=== PATIENT | male | born 1940 | race Caucasian/White ===

== ENCOUNTER 2017-02-24 20:22 | Inpatient (IN) | payer OTHER, MEDICARE ==
[~2017-02-24] VITALS: Ht 175.3 cm; Wt 93.6 kg
[2017-02-24 20:30] VITALS: BP 118/58; PULSE 59; RESP 20; TEMP 97.9; O2SAT 98
[2017-02-24 20:42] VITALS: O2SAT 98
[2017-02-24] MEDS ORDERED: TERA2CAP3 PO (20:42)
[2017-02-24] MEDS ORDERED: LISI2.5T3 PO (20:42)
[2017-02-24] MEDS ORDERED: GUAI1TAB3 PO (20:42)
[2017-02-24] MEDS ORDERED: [UNRECOGNIZED DRUG - OTHER] (20:42)
[2017-02-24] MEDS ORDERED: SODIUM CHLOR 0.9% 1000 ML INJ 1,000 ML IV ONE (20:45)
--- NOTE | 2017-02-24 20:54 | PD ---
HPI Chief Complaint: Syncope/Near-Syncope Time Seen by Provider: 20:30 Travel History International Travel<30 days: No Contact w/Intl Traveler<30days: No Traveled to known affect area: No History of Present Illness HPI 76-year-old male was brought by EMS after syncopal episode. Patient was seen by personal physician today and blood pressure found to be elevated. Blood pressure was 180/88 at the ID clinic this morning. Patient was given prescription for Terazosyn 2 mg daily and Guaifenesin for chronic cough. Patient took the first dose of Terazosin and guaifenesin this afternoon at 5 PM. Patient had a syncopal episode about 2 hours after he took the medication. Patient's states the patient turned pale and had lee color on the skin. Patient's eye rolled back and patient became unresponsive. Patient's states that the episode lasted about 2 minutes. Patient regained consciousness subsequently. Patient did not have any stiffening or shaking of the extremity. Patient did not have any bladder or bowel incontinence. EMS was called. Blood pressure was found to be 80/60 at the scene. Patient was given normal saline solution 250 cc IV bolus. Patient was transferred to ED for evaluation. Patient has history of asthma and allergy. Patient has a chronic cough for the past month. Patient has been wheezing for the past month. Patient has an inhaler at home. Patient denies any fever chills. Patient denies any headache. Patient denies any chest pain. Patient denies abdominal pain. Patient denies any focal weakness or numbness of extremity. Patient's hearing impair. Recent states that he had the chest x-ray at [facility] this morning and was normal. Patient states that the cough is in persistent for the past month and nonproductive. Patient denies any shortness of breath. Patient has history of prostate cancer in the past. PFSH Past Medical History Anxiety: Yes Cardiovascular Problems: Yes Hypertension: Yes Tetanus Vaccination: Unknown Past Surgical History Other Surgery: Yes (prostate) Social History Alcohol Use: No Tobacco Use: No Substance Use: No Allergies-Medications (Allergen,Severity, Reaction): Coded Allergies: Aspirin (Verified Allergy, Severe, Swelling, 02/24/17) at pulses Reported Meds & Prescriptions Reported Meds & Active Scripts Active Reported [resp meds ] Lisinopril 2.5 Mg Tab 2.5 Mg PO DAILY Guaifenesin ER 12 HR (Guaifenesin) 600 Mg Tomás 400 Mg PO BID Terazosin (Terazosin HCl) 2 Mg Cap 2 Mg PO HS Review of Systems General / Constitutional: No: Fever Eyes: No: Visual changes HENT: No: Headaches Cardiovascular: No: Chest Pain or Discomfort Respiratory: Positive: Cough, Wheezing, No: Shortness of Breath Gastrointestinal: No: Abdominal Pain Genitourinary: No: Dysuria Musculoskeletal: No: Pain Skin: No Rash Neurologic: Positive: Syncope, No: Weakness Psychiatric: No: Depression Endocrine: No: Polydipsia Hematologic/Lymphatic: No: Easy Bruising Physical Exam Narrative GENERAL: Well-nourished, well-developed patient. SKIN: Focused skin assessment warm/dry. HEAD: Normocephalic. EYES: No scleral icterus. No injection or drainage. Pupils 2 mm equal reactive. NECK: Supple, trachea midline. No JVD or lymphadenopathy. CARDIOVASCULAR: Regular rate and rhythm without murmurs, gallops, or rubs. RESPIRATORY: Breath sounds equal bilaterally. No accessory muscle use. Patient has mild to moderate expiratory wheezes bilaterally. Few rhonchi at the bases. GASTROINTESTINAL: Abdomen soft, non-tender, nondistended. MUSCULOSKELETAL: No cyanosis, or edema. BACK: Nontender without obvious deformity. No CVA tenderness. Neurologic exam: Patient's awake and alert oriented 3. No obvious focal neurological deficit. Data Data Last Documented VS Vital Signs Date Time Temp Pulse Resp B/P Pulse Ox O2 Delivery O2 Flow Rate FiO2 02/24/17 20:42 98 Nasal Cannula 2 02/24/17 20:30 97.9 59 20 118/58 Orders Electrocardiogram (02/24/17 20:40) Complete Blood Count With Diff (02/24/17 20:40) Comprehensive Metabolic Panel (02/24/17 20:40) Creatine Kinase (Cpk) (02/24/17 20:40) Troponin I (02/24/17 20:40) B-Type Natriuretic Peptide (02/24/17 20:40) Prothrombin Time / Inr (Pt) (02/24/17 20:40) Act Partial Throm Time (Ptt) (02/24/17 20:40) Blood Culture (02/24/17 20:40) Urinalysis - C+S If Indicated (02/24/17 20:40) Magnesium (Mg) (02/24/17 20:40) Thyroid Stimulating Hormone (02/24/17 20:40) Phosphorus (Po4) (02/24/17 20:40) Chest, Single Ap (02/24/17 20:40) Ct Brain W/O Iv Contrast(Rout) (02/24/17 20:40) Iv Access Insert/Monitor (02/24/17 20:40) Ecg Monitoring (02/24/17 20:40) Oximetry (02/24/17 20:40) Sodium Chlor 0.9% 1000 Ml Inj (Ns 1000 M (02/24/17 20:45) Lactic Acid (02/24/17 20:49) Methylprednisolone So Succ Inj (Solumedr (02/24/17 21:00) Albuterol-Ipratropium Neb (Duoneb Neb) (02/24/17 21:00) Admit Order (Ed Use Only) (02/24/17 22:34) Labs Laboratory Tests Test 02/24/17 02/24/17 20:45 21:00 White Blood Count 10.6 TH/MM3 Red Blood Count 3.98 MIL/MM3 Hemoglobin 12.2 GM/DL Hematocrit 34.0 % Mean Corpuscular Volume 85.4 FL Mean Corpuscular Hemoglobin 30.6 PG Mean Corpuscular Hemoglobin 35.8 % Concent Red Cell Distribution Width 12.8 % Platelet Count 337 TH/MM3 Mean Platelet Volume 7.2 FL Neutrophils (%) (Auto) 67.2 % Lymphocytes (%) (Auto) 20.2 % Monocytes (%) (Auto) 6.8 % Eosinophils (%) (Auto) 5.0 % Basophils (%) (Auto) 0.8 % Neutrophils # (Auto) 7.1 TH/MM3 Lymphocytes # (Auto) 2.1 TH/MM3 Monocytes # (Auto) 0.7 TH/MM3 Eosinophils # (Auto) 0.5 TH/MM3 Basophils # (Auto) 0.1 TH/MM3 CBC Comment DIFF FINAL Differential Comment B-Type Natriuretic Peptide 5 PG/ML Prothrombin Time 10.7 SEC Prothromb Time International 1.0 RATIO Ratio Activated Partial 26.2 SEC Thromboplast Time Sodium Level 128 MEQ/L Potassium Level 3.6 MEQ/L Chloride Level 89 MEQ/L Carbon Dioxide Level 24.9 MEQ/L Anion Gap 14 MEQ/L Blood Urea Nitrogen 12 MG/DL Creatinine 1.06 MG/DL Estimat Glomerular Filtration 68 ML/MIN Rate Random Glucose 126 MG/DL Lactic Acid Level 2.0 mmol/L Calcium Level 8.8 MG/DL Phosphorus Level 4.6 MG/DL Magnesium Level 1.8 MG/DL Total Bilirubin 0.3 MG/DL Aspartate Amino Transf 19 U/L (AST/SGOT) Alanine Aminotransferase 28 U/L (ALT/SGPT) Alkaline Phosphatase 63 U/L Total Creatine Kinase 93 U/L Troponin I LESS THAN 0.02 NG/ML Total Protein 7.1 GM/DL Albumin 3.9 GM/DL Thyroid Stimulating Hormone 2.390 uIU/ML 3rd Gen [facility] Medical Decision Making Medical Screen Exam Complete: Yes Emergency Medical Condition: Yes Interpretation(s) 2053 PM. EKG shows sinus bradycardia rate of 57. Nonspecific ST-T wave change. 21:58 PM. Last Impressions Chest X-Ray 02/24/172039 Signed Impressions: Service Date/Time: February 20:40 - CONCLUSION: Mild left lung base atelectasis and/or infiltrate is seen. Mary Ma MD 21:58 PM. CBC within normal limit. Sodium 128. Lactic acid 2.0. Cardiac enzymes are normal. 22:[address] scan of brain shows chronic changes. Differential Diagnosis Differential diagnosis including vasovagal reaction, hypotension secondary to medication, acute exacerbation of asthma, bronchitis, pneumonia, UTI, sepsis, TIA, CVA, MA. Narrative Course 76-year-old male with hypotension, syncope, chronic cough. History of asthma. Patient just started on new medication for blood pressure. Normal saline solution 1 L IV bolus. Albuterol with Atrovent unit dose treatment 2. Solu- Medrol 125 mg IV. Diagnosis Primary Impression: Syncope Qualified Code: R55 - Syncope, unspecified syncope type Additional Impressions: Hypotension Qualified Code: I95.2 - Hypotension due to drugs Asthma exacerbation Admitting Information Admitting Physician Requests: Observation Harley Vang MD Feb 24, 2017 20:54
[2017-02-24] MEDS ORDERED: methylPREDNISolone SOD SUCC 125 MG/2 ML VIAL IVP ONE (21:00)
[2017-02-24] MEDS: RESP: ALBUTEROL 2.5 MG/IPRATROPIUM 0.5 MG NEB (SCH) INH (21:25)
--- NOTE | 2017-02-24 21:25 | RADRPT ---
EXAM DATE/TIME: 02/24/2017 20:40 [facility] COMPARISON: No previous studies available for comparison. INDICATIONS : Syncope. MEDICAL HISTORY : None. SURGICAL HISTORY : None. ENCOUNTER: Initial ACUITY: 1 day PAIN SCORE: 0/10 LOCATION: Bilateral chest FINDINGS: Mild left lung base atelectasis and/or infiltrate is seen. There is mild haziness to the right lung b ase as well. Heart and mediastinum are unremarkable for technique. CONCLUSION: Mild left lung base atelectasis and/or infiltrate is seen. Mary Ma MD on February 24, 2017 at 21:23 Board Certified Radiologist. This report was verified electronically.
[2017-02-24 21:31] LABS: AUTOMATED NEUTROPHIL # 7.1 TH/MM3 (1.8-7.7); BASOPHIL # 0.1 TH/MM3 (0-0.2); BASOPHIL % 0.8 % (0.0-2.0); EOSINOPHIL # 0.5 TH/MM3 (0-0.4); HEMO FLAGS DIFF FINAL; LYMPH % 20.2 % (9.0-44.0); LYMPHOCYTE # 2.1 TH/MM3 (1.0-4.8); MEAN CELL VOLUME 85.4 FL (80.0-100.0); MEAN CORPUSCULAR HEMOGLOBIN 30.6 PG (27.0-34.0); MEAN CORPUSCULAR HGB CONC 35.8 % (32.0-36.0); MONO % 6.8 % (0.0-8.0); NEUT % 67.2 % (16.0-70.0); PLATELET COUNT 337 TH/MM3 (150-450); RED BLOOD COUNT 3.98 MIL/MM3 (4.50-5.90); RED CELL DISTRIBUTION WIDTH 12.8 % (11.6-17.2); WHITE BLOOD COUNT 10.6 TH/MM3 (4.0-11.0)
[2017-02-24 21:38] LABS: APTT (PATIENT) 26.2 SEC (24.3-30.1); PROTHROMBIN TIME - PATIENT 10.7 SEC (9.8-11.6)
[2017-02-24 21:40] LABS: ANION GAP 14 MEQ/L (5-15); AST (GOT) 19 U/L (15-37); BICARBONATE 24.9 MEQ/L (21.0-32.0); BLOOD UREA NITROGEN 12 MG/DL (7-18); CHLORIDE 89 MEQ/L (98-107); GLOMERULAR FILTRATION RATE 68 ML/MIN (>89); MAGNESIUM 1.8 MG/DL (1.5-2.5); POTASSIUM 3.6 MEQ/L (3.5-5.1); SODIUM (NA) 128 MEQ/L (136-145)
[2017-02-24 21:50] LABS: ALKALINE PHOSPHATASE 63 U/L (45-117); ALT (GPT) 28 U/L (12-78); TOTAL BILIRUBIN ADULT 0.3 MG/DL (0.2-1.0)
[2017-02-24 21:52] LABS: CREATINE KINASE 93 U/L (39-308)
--- NOTE | 2017-02-24 22:07 | RADRPT ---
EXAM DATE/TIME: 02/24/2017 21:42 [facility] COMPARISON: No previous studies available for comparison. INDICATIONS : Syncopal episode RADIATION DOSE: 48.84 CTDIvol (mGy) MEDICAL HISTORY : Cardiovascular disease. Hypertension. SURGICAL HISTORY : None. ENCOUNTER: Initial ACUITY: 1 day PAIN SCALE: 3/10 LOCATION: Bilateral cranial TECHNIQUE: Multiple contiguous axial images were obtained of the head. Using automated exposure control and adj ustment of the mA and/or kV according to patient size, radiation dose was kept as low as reasonably a chievable to obtain optimal diagnostic quality images. FINDINGS: There is no evidence for intracranial hemorrhage, mass effect, mass lesions, or edema. The visualize d bony structures appear intact. Slight degree of brain atrophy is seen. Slight periventricular whit e matter changes are seen nonspecific mostly consistent with chronic small vessel ischemic changes. There are no signs of acute infarction for technique. CONCLUSION: Slight atrophic and small vessel ischemic changes without any evidence for acute hemorrhage or mass effect. Mary Ma MD on February 24, 2017 at 22:04 Board Certified Radiologist. This report was verified electronically.
[2017-02-24] MEDS ORDERED: SODIUM CHLOR 0.9% 1000 ML INJ 1,000 ML IV SCH (22:45)
[2017-02-24] MEDS: SODIUM CHLOR 0.9% 1000 ML INJ 1,000 ML IV SCH (23:05)
--- NOTE | 2017-02-24 23:08 | HHI.HP ---
HPI Service [facility] Primary Care Physician [facility] Admission Diagnosis syncope. Hypotension. Diagnoses: (1) Syncope Diagnosis: Principal (2) PNA (pneumonia) Diagnosis: Principal (3) Hypotension Diagnosis: Principal (4) Dehydration Diagnosis: Principal (5) Hyponatremia Diagnosis: Principal Travel History International Travel<30 Days: No Contact w/Intl Traveler <30 Da: No Traveled to Known Affected Are: No History of Present Illness This is a 76-year-old male with PMH of HTN, CAD and Anxiety who was brought to the ER by EMS after syncopal episode. Patient was seen by PCP at the [facility] earlier today and noted to have elevated BP of 180/88, started on Terazosin 2mg po qd and given Guaifenesin for c/o cough. States he took meds this afternoon and noted dizziness shortly afterwards. noted pt to be weak/pale and then had sudden syncopal event. No seizure activity noted, no head trauma. BP per EMS 80/60, s/p IVF w/ improvement. On arrival, BP 118/58, HR 59, O2 sat 98% on RA, Afebrile. CBC essentially unremarkable. Na 128. GFR 68, no previous labs for comparison. Lactic Acid 2.0. CXR w/ mild LLL infiltrates. Review of Systems Except as stated in HPI: all other systems reviewed are Neg ROS: 14 point review of systems otherwise negative. Past Family Social History Past Medical History PMH: HTN, CAD and Anxiety Past Surgical History PAST SURGICAL HISTORY: Prostate Surgery Allergies: Coded Allergies: Aspirin (Verified Allergy, Severe, Swelling, 02/24/17) at pulses Family History PAST FAMILY HISTORY: Reviewed. No h/o DM or CAD Social History PAST SOCIAL HISTORY: Negative for alcohol, tobacco or drugs. Physical Exam Vital Signs Vital Signs Date Time Temp Pulse Resp B/P Pulse Ox O2 Delivery O2 Flow Rate FiO2 02/24/17 20:42 98 Nasal Cannula 2 02/24/17 20:30 97.9 59 20 118/58 98 Physical Exam PE: GENERAL: Very pleasant elderly white male in no acute distress. HEENT: PERRLA, EOMI. No scleral icterus or conjunctival pallor. No lid lag or facial droop. CARDIOVASCULAR: Regular rate and rhythm. No obvious murmurs to auscultation. No chest tenderness to palpation. RESPIRATORY: No obvious rhonchi, +expiratory wheezing, otherwise clear to auscultation. Breath sounds equal bilaterally. GASTROINTESTINAL: Abdomen soft, non-tender, nondistended. BS normal. MUSCULOSKELETAL: Extremities without clubbing, cyanosis, or edema. No obvious deformities. NEUROLOGICAL: Awake, alert and oriented x4. No focal neurologic deficits. Moving both upper and lower extremities spontaneously. Laboratory Laboratory Tests Test 02/24/17 02/24/17 20:45 21:00 White Blood Count 10.6 Red Blood Count 3.98 Hemoglobin 12.2 Hematocrit 34.0 Mean Corpuscular Volume 85.4 Mean Corpuscular Hemoglobin 30.6 Mean Corpuscular Hemoglobin 35.8 Concent Red Cell Distribution Width 12.8 Platelet Count 337 Mean Platelet Volume 7.2 Neutrophils (%) (Auto) 67.2 Lymphocytes (%) (Auto) 20.2 Monocytes (%) (Auto) 6.8 Eosinophils (%) (Auto) 5.0 Basophils (%) (Auto) 0.8 Neutrophils # (Auto) 7.1 Lymphocytes # (Auto) 2.1 Monocytes # (Auto) 0.7 Eosinophils # (Auto) 0.5 Basophils # (Auto) 0.1 CBC Comment DIFF FINAL Differential Comment B-Type Natriuretic Peptide 5 Prothrombin Time 10.7 Prothromb Time International 1.0 Ratio Activated Partial 26.2 Thromboplast Time Sodium Level 128 Potassium Level 3.6 Chloride Level 89 Carbon Dioxide Level 24.9 Anion Gap 14 Blood Urea Nitrogen 12 Creatinine 1.06 Estimat Glomerular Filtration 68 Rate Random Glucose 126 Lactic Acid Level 2.0 Calcium Level 8.8 Phosphorus Level 4.6 Magnesium Level 1.8 Total Bilirubin 0.3 Aspartate Amino Transf 19 (AST/SGOT) Alanine Aminotransferase 28 (ALT/SGPT) Alkaline Phosphatase 63 Total Creatine Kinase 93 Troponin I LESS THAN 0.02 Total Protein 7.1 Albumin 3.9 Thyroid Stimulating Hormone 2.390 3rd Gen Date/Time Procedure Status Source Growth 02/24/17 20:45 Aerobic Blood Culture Received Blood Peripheral Pending 02/24/17 20:45 Anaerobic Blood Culture Received Blood Peripheral Pending Result Diagram: 4/20/17 2045 4/20/17 2100 Assessment and Plan Problem List: (1) Syncope ICD Code: R55 Status: Acute (2) Hypotension ICD Code: I95.9 Status: Acute (3) Dehydration ICD Code: E86.0 Status: Acute (4) Hyponatremia ICD Code: E87.1 Status: Acute (5) PNA (pneumonia) ICD Code: J18.9 Status: Acute Assessment and Plan A/P: 1. Syncope: likely secondary to medication and dehydration. Started on Terazosyn 2mg po qd, first dose today, BP per EMS 80/60, s/p IVF w/ improvement. CT Head w/ no acute findings, images reviewed by me. Admit for Observation, telemetry, check Echo, initial trop negative, check serial cardiac enzymes to eval for underlying ischemia. 2. Hypotension: As above, secondary to medication and dehydration. Hold BP meds, monitor BP, resume medications once BP stable. IVF for hydration. 3. Hyponatremia: Na 128, U/a negative for UTI, IVF for hydration, repeat labs in am. 4. Dehydration: GFR 68, no previous labs for comparison, IVF for hydration, repeat labs in am. 5. PNA: CXR w/ LLL infiltrate, images reviewed by me, start IV Rocephin/Zithro , +wheezing in ER, DuoNeb prn, continue Guaifenesin. 6. DVT Prophylaxis: SCD/Teds. 7. Social work for d/c planning as needed. 8. Case discussed w/ ER physician at length. Problem Qualifiers (1) Syncope: Qualified Code: R55 - Syncope, unspecified syncope type (2) Hypotension: Qualified Code: I95.2 - Hypotension due to drugs Arline Borja MD Feb 24, 2017 23:08
[2017-02-24 23:09] LABS: MEAN CORPUSCULAR HGB CONC 36.9 % (32.0-36.0)
[2017-02-24] MEDS ORDERED: ACETAMINOPHEN/HYDROcodone 325 MG/5 MG TAB PO PRN (23:15)
[2017-02-24] MEDS ORDERED: SODIUM CHLORIDE 0.9% FLUSH 10 ML FLUSH IV FLUSH PRN (23:15)
[2017-02-24] MEDS ORDERED: BISACODYL 10 MG SUPP RECTAL PRN (23:15)
[2017-02-24] MEDS ORDERED: ACETAMINOPHEN 325 MG TAB PO PRN (23:15)
[2017-02-24] MEDS ORDERED: ONDANSETRON HCL 4 MG/2 ML VIAL IVP PRN (23:15)
[2017-02-24] MEDS ORDERED: ACETAMINOPHEN/HYDROcodone 325 MG/7.5 MG TAB PO PRN (23:15)
[2017-02-24] MEDS: cefTRIAXone INJ 1,000 MG in SODIUM CHLORIDE 0.9% INJ 100 ML IV SCH (23:35)
[2017-02-25] VITALS (11 sets, daily range): BP systolic 122–206; BP diastolic 66–97; PULSE 62–105; RESP 18–21; TEMP 98–98.4; O2SAT 94–96
[2017-02-25] MEDS: AZITHROMYCIN INJ 500 MG in SODIUM CHLOR 0.9% 250 ML INJ 250 ML IV SCH (00:25)
[2017-02-25] MEDS: RESP: ALBUTEROL 2.5 MG/IPRATROPIUM 0.5 MG NEB (PRN) NEB ×2 (04:11→11:28)
[2017-02-25 04:34] LABS: AUTOMATED NEUTROPHIL # 12.7 TH/MM3 (1.8-7.7); BASOPHIL % 0.2 % (0.0-2.0); EOSINOPHIL % 0.1 % (0.0-4.0); HEMATOCRIT 32.2 % (39.0-51.0); LYMPH % 4.1 % (9.0-44.0); LYMPHOCYTE # 0.5 TH/MM3 (1.0-4.8); MEAN CELL VOLUME 85.3 FL (80.0-100.0); MEAN CORPUSCULAR HEMOGLOBIN 31.5 PG (27.0-34.0); MONO % 0.6 % (0.0-8.0); PLATELET COUNT 323 TH/MM3 (150-450); RED BLOOD COUNT 3.77 MIL/MM3 (4.50-5.90); RED CELL DISTRIBUTION WIDTH 12.9 % (11.6-17.2); WHITE BLOOD COUNT 13.3 TH/MM3 (4.0-11.0)
[2017-02-25 04:36] LABS: HEMO FLAGS AUTO DIFF
[2017-02-25 04:54] LABS: BLOOD, URINE NEG (NEG); COMMENT (UR) CULT NOT INDICATED; CULTURE IF INDICATED CULT NOT INDICATED; GLUCOSE,URINE TRACE mg/dL (NEG); KETONE, URINE NEG (NEG); MUCUS URINE FEW /lpf (OCC); NITRITE,URINE NEG (NEG); SQUAMOUS EPITHELIAL CELL URINE <1 /hpf (0-5); URINE COLOR YELLOW (YELLW/STRAW)
[2017-02-25 05:02] LABS: ALT (GPT) 26 U/L (12-78); ANION GAP 12 MEQ/L (5-15); AST (GOT) 17 U/L (15-37); BICARBONATE 21.1 MEQ/L (21.0-32.0); BLOOD UREA NITROGEN 12 MG/DL (7-18); CHLORIDE 95 MEQ/L (98-107); GLOMERULAR FILTRATION RATE 68 ML/MIN (>89); POTASSIUM 4.3 MEQ/L (3.5-5.1); SODIUM (NA) 128 MEQ/L (136-145)
[2017-02-25 05:06] LABS: ALKALINE PHOSPHATASE 62 U/L (45-117); TOTAL BILIRUBIN ADULT 0.2 MG/DL (0.2-1.0)
[2017-02-25 05:09] LABS: SCAN/DIFF AUTO DIFF CONFIRMED
[2017-02-25] MEDS: guaiFENesin E.R. 600 MG TAB PO SCH ×2 (08:16→20:34)
[2017-02-25] MEDS: SODIUM CHLORIDE 0.9% FLUSH 10 ML FLUSH IV FLUSH SCH ×2 (08:17→20:32)
[2017-02-25] MEDS ORDERED: LISINOPRIL 5 MG TAB PO SCH (09:00)
--- NOTE | 2017-02-25 13:30 | EC ---
Study Study Date:02/25/2017 STUDY CONCLUSIONS SUMMARY LEFT VENTRICLE: The cavity size was normal. Systolic function was normal. The estimated ejection fraction was in the range of 60% to 65%. Although no diagnostic regional wall motion abnormality was identified, this possibility cannot be completely excluded on the basis of this study. The study is not technically sufficient to allow evaluation of LV diastolic function. If LV function is below 40, please consider prescribing an ACEI or ARB or document rationale for non-use. PROCEDURE DATA STUDY STATUS: Elective. Procedure: Transthoracic echocardiography. Image quality was good. Scanning was performed from the parasternal, apical, and subcostal acoustic windows. Study completion: The patient tolerated the procedure well. Transthoracic echocardiography. M-mode, complete 2D, complete spectral Doppler, and color Doppler. Height: Height: 69in. Weight: Weight: 197.6lb. Body mass index: BMI: 29.2kg/m^2. Body surface area: BSA: 2.06m^2. Patient status: Inpatient. CARDIAC ANATOMY LEFT VENTRICLE: The cavity size was normal. Systolic function was normal. The estimated ejection fraction was in the range of 60% to 65%. Although no diagnostic regional wall motion abnormality was identified, this possibility cannot be completely excluded on the basis of this study. The study is not technically sufficient to allow evaluation of LV diastolic function. AORTIC VALVE: The valve appears to be grossly normal. Doppler: There was no stenosis. No significant regurgitation. Valve area: 2.4cm^2 (Vmax). Indexed valve area: 1.17cm^2/m^2 (Vmax). Peak gradient: 19mm Hg (S). MITRAL VALVE: The valve appears to be grossly normal. Doppler: There was no evidence for stenosis. Trace to mild regurgitation. LEFT ATRIUM: The atrium was normal in size. PULMONIC VALVE: Not well visualized. TRICUSPID VALVE: The valve appears to be grossly normal. Doppler: There was no evidence for stenosis. Trace regurgitation. PERICARDIUM: There was no pericardial effusion. Patient weight: 197.6lb _Ejection fraction:_ 65-75% _Fractional shortening:_ 32% up to 5Kg 5-11.5Kg 11.6-22.9Kg 23-45Kg 45-57Kg Aortic Root 7-13 <17 13-22 17-27 17-27 LA diam 6-13 <23 24-38 33-47 37-40 RVID 10-17 7-15 7-15 7-18 8-17 LVIDd 12-22 <32 24-38 33-47 37-40 LVPW 2-4 3-6 5-7 6-8 7-8 IVS 2-4 3-6 5-7 6-8 7-8 BASIC MEASUREMENTS ADULT NORMAL Left ventricle LV internal dimension, ED, chordal *55.7 mm 43-52 level, PLAX LV internal dimension, ES, chordal *38.1 mm 23-38 level, PLAX Fractional shortening, chordal level, 32 % >29 PLAX LV posterior wall thickness, ED 9.62 mm IVS/LVPW ratio, ED 1 <1.3 Ventricular septum Septal thickness, ED 9.64 mm Aortic valve Leaflet separation 23 mm 15-26 BASIC MEASUREMENTS ADULT NORMAL Aortic valve Leaflet separation 23 mm 15-26 Aorta Root diameter, ED 33 mm 20-37 Left atrium Anterior-posterior dimension, ES 32 mm 19-40 Anterior-posterior dimension index, ES 1.55 cm/m^2 <2.2 LA/aortic root ratio 0.97 DOPPLER MEASUREMENTS ADULT NORMAL Main pulmonary artery Pressure, S 24 mm Hg =30 Aortic valve Peak velocity, S 220 cm/s Peak gradient, S 19 mm Hg Valve area, Vmax 2.4 cm^2 Valve area index, Vmax 1.17 cm^2/m^2 Mitral valve Maximal regurgitant velocity 324 cm/s Tricuspid valve Regurgitant peak velocity 236 cm/s Peak RV-RA gradient, S 22 mm Hg Maximal regurgitant velocity 236 cm/s Systemic veins Estimated CVP 10 mm Hg Right ventricle RV pressure, S *32 mm Hg <30 Pulmonic valve Peak velocity, S 141 cm/s LEGEND: Mean values are shown as u=mean value. Asterisk (*) woods values outside specified normal range. Prepared and signed by David Tate [id number]
[2017-02-25] MEDS ORDERED: LISINOPRIL 10 MG TAB PO ONE (14:30)
--- NOTE | 2017-02-25 14:49 | HHI.PR ---
Subjective Remarks Follow-up for syncope and pneumonia. Patient seen with at bedside. The patient states that he was having chest congestion and dry coughing for one month. He states he had a chest x-ray at the [facility] this week that was clear. He states he was diagnosed with bronchitis. He states that yesterday he was sitting down after eating dinner, and had an episode of dizziness with subsequent syncope. He states that his blood pressure has been running high lately, normally on 3 BP meds, so the [facility] put him on a new medication, terazosin twice a day to take for prostate and blood pressure. He states about 2 hours after he took the terazosin for the first time he had the syncopal episode. He continues to complain of dry cough and chest congestion today. He does have a remote history of tobacco use. He states he had PFTs done recently at the [facility], unclear on the results. Objective Vitals Vital Signs Date Time Temp Pulse Resp B/P Pulse Ox O2 Delivery O2 Flow Rate FiO2 02/25/17 11:36 101 18 172/80 95 02/25/17 10:25 170/80 02/25/17 07:44 98.0 90 18 190/86 95 180/97 206/97 02/25/17 04:44 98.3 62 20 122/66 96 02/25/17 01:07 70 02/25/17 00:39 98.4 65 20 132/69 96 02/24/17 20:42 98 Nasal Cannula 2 02/24/17 20:30 97.9 59 20 118/58 98 I/O 02/24/17 02/24/17 02/24/17 02/25/17 02/25/17 02/25/17 07:00 15:00 23:00 07:00 15:00 23:00 Intake Total 600 ml Output Total 800 ml Balance -200 ml Intake IV Total 600 ml Output Urine Total 800 ml # Voids 0 # Bowel Movements 0 Result Diagram: 02/25/1740902/25/17409 Imaging Last Impressions Head CT 02/24/172039 Signed Impressions: Service Date/Time: February 21:42 - CONCLUSION: Slight atrophic and small vessel ischemic changes without any evidence for acute hemorrhage or mass effect. Mary Ma MD Chest X-Ray 02/24/172039 Signed Impressions: Service Date/Time: February 20:40 - CONCLUSION: Mild left lung base atelectasis and/or infiltrate is seen. Mary Ma MD Objective Remarks GENERAL: Well-developed well-nourished obese. In no acute distress. SKIN: Warm and dry. No lesions noted. HEENT: Normocephalic. Pupils equal and round. Mucous membranes pink and moist. CARDIOVASCULAR: Regular rate and rhythm. No murmur appreciated. RESPIRATORY: No accessory muscle use. Clear to auscultation. Expiratory wheezing present in all lung clark. GASTROINTESTINAL: Abdomen soft, non-tender, nondistended. Bowel sounds x4. MUSCULOSKELETAL: No obvious deformities. No clubbing or cyanosis. No edema. NEUROLOGICAL: Awake and alert. No focal neurological deficits. Moves upper and lower extremities spontaneously. Normal speech. PSYCHIATRIC: Appropriate mood and affect; insight and judgment normal. A/P Problem List: (1) Syncope ICD Code: R55 Status: Acute (2) Hypotension ICD Code: I95.9 Status: Acute (3) Dehydration ICD Code: E86.0 Status: Acute (4) Hyponatremia ICD Code: E87.1 Status: Acute (5) PNA (pneumonia) ICD Code: J18.9 Status: Acute Assessment and Plan 76-year-old male with PMH of HTN, CAD and Anxiety who presented after syncopal episode Syncope: Likely due to hypotension from new medication terazosin as well as acute infection as below. Started on Terazosyn 2mg po qd, first dose 2 hours prior to syncopal episode. BP per EMS 80/60, s/p IVF w/ improvement. CT Head w / no acute findings. Orthostatics negative. Troponin normal 3. Echocardiogram with normal systolic function EF 60%. Monitor on telemetry. Acute episode of hypotension with chronic uncontrolled hypertension: Reconcile patient's home medications. Resume lisinopril 40 mg daily and diltiazem 240 mg daily. Hold home HCTZ with possible dehydration. Avoid alpha blockers due to syncope. Resume previous home medications. Clonidine as needed. Monitor and adjust medications as needed. Cold systolic blood pressure around 150. Hyponatremia/dehydration: Na 128. IVF for hydration, repeat labs in am. PNA: CXR personally reviewed w/ LLL infiltrate. Patient reports rest for symptoms 1 month. Continue IV Rocephin/Zithro. Check sputum culture and urinary antigens. Guaifenesin for cough. Acute COPD exacerbation: Right history tobacco abuse. Wheezing on exam. Likely exacerbated by pneumonia as above. Oral steroids 3 days. Scheduled and as needed nebs. O2 as needed. DVT Prophylaxis: SCD/Teds. Discharge Planning Follow-up BP and monitor for clinical improvement from pneumonia. Problem Qualifiers (1) Syncope: Qualified Code: R55 - Syncope, unspecified syncope type (2) Hypotension: Qualified Code: I95.2 - Hypotension due to drugs Phi Marquez Feb 25, 2017 14:49
[2017-02-25] MEDS ORDERED: DILT-64 PO (14:53)
[2017-02-25] MEDS ORDERED: LISI40TA PO (14:55)
[2017-02-25] MEDS ORDERED: ALBU6.7H INH (14:57)
[2017-02-25] MEDS ORDERED: LORA10TA PO (14:58)
[2017-02-25] MEDS ORDERED: RANI150C PO (15:00)
[2017-02-25] MEDS: RESP: ALBUTEROL 2.5 MG/IPRATROPIUM 0.5 MG NEB (SCH) NEB ×2 (15:22→20:24)
[2017-02-25] MEDS: DILTIAZEM-CD 240 MG CAP ER PO SCH (15:55)
[2017-02-25] MEDS: predniSONE 20 MG TAB PO SCH ×2 (15:55→20:34)
[2017-02-25] MEDS: SODIUM CHLOR 0.9% 1000 ML INJ 1,000 ML IV SCH ×2 (15:56→20:34)
[2017-02-25] MEDS ORDERED: HYDR25TA5 PO (16:13)
[2017-02-25] MEDS ORDERED: PRAV40TA2 PO (16:14)
--- NOTE | 2017-02-25 18:43 | EKG ---
Date Performed: 02/24/2017 Time Performed: 20:40:59 PTAGE: 76 years EKG: SINUS BRADYCARDIA BORDERLINE ECG NO PREVIOUS TRACING DOCTOR: Isra Iniguez Interpretating Date/Time 02/25/2017 18:40:15
[2017-02-25] MEDS: LISINOPRIL 20 MG TAB PO SCH (20:34)
[2017-02-25] MEDS: FAMOTIDINE 20 MG TAB PO SCH (20:34)
[2017-02-25] MEDS ORDERED: PILL SPLITTER OTHER PRN (21:00)
[2017-02-26] VITALS (22 sets, daily range): BP systolic 140–178; BP diastolic 66–86; PULSE 65–120; RESP 18–32; TEMP 96.4–98.7; O2SAT 93–98
[2017-02-26] MEDS: AZITHROMYCIN INJ 500 MG in SODIUM CHLOR 0.9% 250 ML INJ 250 ML IV SCH (00:09)
[2017-02-26] MEDS: cefTRIAXone INJ 1,000 MG in SODIUM CHLORIDE 0.9% INJ 100 ML IV SCH (00:09)
[2017-02-26] MEDS: RESP: ALBUTEROL 2.5 MG/IPRATROPIUM 0.5 MG NEB (PRN) NEB ×3 (02:06→16:32)
[2017-02-26] MEDS ORDERED: methylPREDNISolone SOD SUCC 125 MG/2 ML VIAL IV PUSH ONE (02:30)
--- NOTE | 2017-02-26 03:25 | RADRPT ---
EXAM DATE/TIME: 02/26/2017 02:53 [facility] COMPARISON: CHEST SINGLE AP, February 24, 2017, 20:40. INDICATIONS : Shortness of breath. MEDICAL HISTORY : None. SURGICAL HISTORY : None. ENCOUNTER: Subsequent ACUITY: 3 days PAIN SCORE: 0/10 LOCATION: Bilateral chest FINDINGS: A single view of the chest demonstrates the lungs to be symmetrically aerated without evidence of mas s, infiltrate or effusion. The cardiomediastinal contours are unremarkable. Osseous structures are intact. CONCLUSION: No acute disease. Marcelo Campa Jr., MD on February 26, 2017 at 3:23 Board Certified Radiologist. This report was verified electronically.
[2017-02-26] MEDS: methylPREDNISolone SOD SUCC 40 MG/1 ML VIAL IV PUSH SCH ×3 (06:43→17:41)
[2017-02-26] MEDS ORDERED: cloNIDine HCL 0.1 MG TAB PO PRN (07:15)
[2017-02-26] MEDS: FAMOTIDINE 20 MG TAB PO SCH ×2 (08:07→21:16)
[2017-02-26] MEDS: LISINOPRIL 20 MG TAB PO SCH ×2 (08:08→21:15)
[2017-02-26] MEDS: DILTIAZEM-CD 240 MG CAP ER PO SCH (08:08)
[2017-02-26] MEDS: SODIUM CHLORIDE 0.9% FLUSH 10 ML FLUSH IV FLUSH SCH ×2 (08:08→21:15)
[2017-02-26] MEDS: guaiFENesin E.R. 600 MG TAB PO SCH ×2 (08:08→21:16)
[2017-02-26] MEDS: RESP: ALBUTEROL 2.5 MG/IPRATROPIUM 0.5 MG NEB (SCH) NEB ×3 (08:09→21:31)
--- NOTE | 2017-02-26 08:55 | HHI.PR ---
Subjective Remarks Follow-up for syncope and ammonia. The patient states he felt like his congestion was loosening up yesterday evening. However, the patient woke up in the middle of the night gasping for air, improved some after breathing treatment. Overall today he denies any acute worsening of his shortness of breath. He denies any chest pain. He denies any prior history of waking up at night gasping for breath, although his does state that he snores occasionally. He is having much worse wheezing today. Objective Vitals Vital Signs Date Time Temp Pulse Resp B/P Pulse Ox O2 Delivery O2 Flow Rate FiO2 02/26/17 08:13 22 97 02/26/17 08:12 97 Nasal Cannula 3.00 02/26/17 07:33 98.4 87 20 171/79 97 02/26/17 05:53 98.6 84 24 171/76 95 02/26/17 04:24 79 21 96 02/26/17 02:36 93 28 93 02/26/17 02:13 97.8 98 24 175/77 96 02/26/17 02:00 120 32 93 02/26/17 02:00 93 Nasal Cannula 3.00 02/25/17 23:11 98.1 78 20 153/74 94 02/25/17 20:00 96 02/25/17 19:47 98.4 96 21 189/82 96 02/25/17 17:23 151/80 02/25/17 15:40 98.2 105 20 183/82 96 02/25/17 11:36 101 18 172/80 95 02/25/17 10:25 170/80 I/O 02/25/17 02/25/17 02/25/17 02/26/17 02/26/17 02/26/17 07:00 15:00 23:00 07:00 15:00 23:00 Intake Total 600 ml 1750 ml 808 ml Output Total 800 ml 1925 ml 650 ml Balance -200 ml -175 ml 158 ml Intake Oral 750 ml IV Total 600 ml 1000 ml 808 ml Output Urine Total 800 ml 1925 ml 650 ml # Bowel Movements 0 Result Diagram: 02/25/17 0410 02/25/17 0410 Imaging Last Impressions Chest X-Ray 02/26/17 0000 Signed Impressions: Service Date/Time: Sunday, February 26, 2017 02:53 - CONCLUSION: No acute disease. Marcelo Campa Jr., MD Head CT 02/24/172039 Signed Impressions: Service Date/Time: February 21:42 - CONCLUSION: Slight atrophic and small vessel ischemic changes without any evidence for acute hemorrhage or mass effect. Mary Ma MD Objective Remarks GENERAL: Well-developed well-nourished obese. In no acute distress. Audibly wheezing. SKIN: Warm and dry. No lesions noted. HEENT: Normocephalic. Pupils equal and round. Mucous membranes pink and moist. CARDIOVASCULAR: Regular rate and rhythm. No murmur appreciated. RESPIRATORY: Mild accessory muscle use. Diminished breath sounds in the bases with expiratory wheezing in the upper lung clark. GASTROINTESTINAL: Abdomen soft, non-tender, nondistended. Bowel sounds x4. MUSCULOSKELETAL: No obvious deformities. No clubbing or cyanosis. No edema. NEUROLOGICAL: Awake and alert. No focal neurological deficits. Moves upper and lower extremities spontaneously. Normal speech. PSYCHIATRIC: Appropriate mood and affect; insight and judgment normal. A/P Problem List: (1) Syncope ICD Code: R55 Status: Acute (2) Hypotension ICD Code: I95.9 Status: Acute (3) Dehydration ICD Code: E86.0 Status: Acute (4) Hyponatremia ICD Code: E87.1 Status: Acute (5) PNA (pneumonia) ICD Code: J18.9 Status: Acute Assessment and Plan 76-year-old male with PMH of HTN, CAD and Anxiety who presented after syncopal episode Syncope: Likely due to hypotension from new medication terazosin as well as acute infection as below. Started on Terazosyn 2mg po qd, first dose 2 hours prior to syncopal episode. BP per EMS 80/60, s/p IVF w/ improvement. CT Head w / no acute findings. Orthostatics negative. Troponin normal 3. Echocardiogram with normal systolic function EF 60%. Monitor on telemetry. Acute episode of hypotension with chronic uncontrolled hypertension: Reconcile patient's home medications. Resume lisinopril 40 mg daily and diltiazem 240 mg daily. Hold home HCTZ with possible dehydration. Avoid alpha blockers due to syncope. Resume previous home medications. Clonidine as needed. Monitor and adjust medications as needed. Goal systolic blood pressure around 150. Remains uncontrolled, add metoprolol. Hyponatremia/dehydration: Na 128. IVF for hydration, repeat labs in am. PNA with suspected acute respiratory failure: Repeat CXR personally reviewed w / slightly improved LLL infiltrate. Patient reports respiratory symptoms 1 month. Change IV ceftriaxone to IV Unasyn for aspiration coverage. Continue azithromycin. Urine antigens negative. Sputum culture pending. Guaifenesin for cough. Acapella. Check d-dimer, pulmonary angiogram if needed. Check ABG. Acute COPD exacerbation: Right history tobacco abuse. Wheezing on exam. Likely exacerbated by pneumonia as above. IV Solu-Medrol. Scheduled and as needed nebs. O2 as needed. Suspected underlying sleep apnea: CPAP at night as needed. Consult pulmonology. DVT Prophylaxis: SCD/Teds. Discharge Planning Follow-up BP and monitor for clinical improvement from pneumonia. Consider inpatient admission for worsening symptoms. Problem Qualifiers (1) Syncope: Qualified Code: R55 - Syncope, unspecified syncope type (2) Hypotension: Qualified Code: I95.2 - Hypotension due to drugs Phi Marquez Feb 26, 2017 08:55
[2017-02-26] MEDS ORDERED: ALBUTEROL SULFATE 90 MCG/ACT HFA 18 GM INHALER INH PRN (10:15)
[2017-02-26] MEDS: AMPICILLIN-SULBACTAM INJ 3 GM in SODIUM CHLORIDE 0.9% INJ 100 ML IV SCH ×3 (11:00→17:04)
[2017-02-26 12:14] LABS: BLOOD GAS BASE EXCESS -3.7 mmol/L (-2-2); BLOOD GAS HCO3 20 mmol/L (22-26); BLOOD GAS METHEMOGLOBIN 0.3 % (0-2); BLOOD GAS O2 HGB SATURATION 90 % (90-100); BLOOD GAS OXYGEN CONTENT 14.7 Vol % (12.0-20.0); BLOOD GAS PCO2 31 mmHg (38-42); BLOOD GAS PO2 56 mmHG (61-120); BLOOD GAS TOTAL HGB 11.6 G/DL (12.0-16.0); TEMP CORR TO 98.6
[2017-02-26 12:15] LABS: CRITICAL VALUE YES; DRAW SITE RT RADIAL; FIO2 21 %; NUMBER OF ARTERIAL PUNCTURES 1; STAT NO; ULNAR PULSE PRESENT
[2017-02-26] MEDS: LORATADINE 10 MG TAB PO SCH (12:31)
[2017-02-26] MEDS: METOPROLOL TARTRATE 25 MG TAB PO SCH ×2 (12:33→21:16)
[2017-02-26] MEDS ORDERED: IOHEXOL 350 MG/ML 10 ML VIAL (for RAD DIAG) IV ONE (16:18)
--- NOTE | 2017-02-26 16:31 | RADRPT ---
EXAM DATE/TIME: 02/26/2017 15:49 [facility] COMPARISON: No previous studies available for comparison. INDICATIONS : Syncope and shortness of breath. IV CONTRAST: 75 cc Omnipaque 350 (iohexol) IV RADIATION DOSE: 23.16 CTDIvol (mGy) MEDICAL HISTORY : Carcinoma, prostate. Hypertension. SURGICAL HISTORY : None. ENCOUNTER: Initial ACUITY: 1 day PAIN SCALE: 0/10 LOCATION: Bilateral chest TECHNIQUE: Volumetric scanning of the chest was performed using a pulmonary embolism protocol MIP images were re constructed. Using automated exposure control and adjustment of the mA and/or kV according to patien t size, radiation dose was kept as low as reasonably achievable to obtain optimal diagnostic quality images. FINDINGS: Contrast delivery is next with equal contrast intensity in the aorta, pulmonary arteries, and pulmona ry veins. PULMONARY ARTERIES: No filling defects are seen in the pulmonary arteries through the segmental level. LUNGS: There is a small area of consolidation in the lateral posterior segment of the right upper lobe measu ring 2.3 x 2.5 cm in size. There are some air alveologram within. In the right costophrenic angle, there is opacity measuring 1 cm thickness without air bronchograms suggesting atelectasis. PLEURAE: There is no pleural thickening or pleural effusion. MEDIASTINUM: There is good visualization of the great vessels of the middle mediastinum. No evidence of mediastin al or hilar adenopathy/mass. Coronary artery calcifications. CONCLUSION: 1. The study is negative for pulmonary embolism. 2. Subsegmental consolidation in the posterior segment of the right upper lobe and atelectasis in the right costophrenic angle. Marcelo Rain MD on February 26, 2017 at 16:25 Board Certified Radiologist. This report was verified electronically.
[2017-02-26 18:17] LABS: HEMATOCRIT 32.7 % (39.0-51.0); MEAN CORPUSCULAR HEMOGLOBIN 29.6 PG (27.0-34.0); MEAN CORPUSCULAR HGB CONC 34.1 % (32.0-36.0); PLATELET COUNT 341 TH/MM3 (150-450); RED BLOOD COUNT 3.76 MIL/MM3 (4.50-5.90); RED CELL DISTRIBUTION WIDTH 13.2 % (11.6-17.2); REVIEW FLAG FINAL; WHITE BLOOD COUNT 17.9 TH/MM3 (4.0-11.0)
[2017-02-26 18:47] LABS: ANION GAP 12 MEQ/L (5-15); AST (GOT) 28 U/L (15-37); BICARBONATE 24.2 MEQ/L (21.0-32.0); BLOOD UREA NITROGEN 17 MG/DL (7-18); CHLORIDE 92 MEQ/L (98-107); GLOMERULAR FILTRATION RATE 89 ML/MIN (>89); POTASSIUM 4.3 MEQ/L (3.5-5.1); SODIUM (NA) 128 MEQ/L (136-145)
[2017-02-26 18:51] LABS: ALKALINE PHOSPHATASE 48 U/L (45-117); ALT (GPT) 26 U/L (12-78); TOTAL BILIRUBIN ADULT 0.2 MG/DL (0.2-1.0)
--- NOTE | 2017-02-26 21:02 | MB ---
cc: BILL KHAN DATE OF CONSULTATION 02/26/17 REASON FOR CONSULTATION Hypoxemia requiring BiPap therapy. HISTORY OF PRESENT ILLNESS Mr. Muniz is a 76-year-old male who was admitted after a syncopal episode. Mr. Muniz has history of hypertension as well as coronary artery disease. He does have a cough with expectoration of whitish yellowish mucoid sputum. He feels somewhat congested. Before his admission, he said he felt weak, pale. He is being evaluated for same at this time. PAST MEDICAL HISTORY 1. Hypertension, 2. Coronary artery disease 3. Anxiety disorder. 4. Questionable chronic obstructive pulmonary disease 5. Hyperlipidemia ALLERGIES ASPIRIN PAST SURGICAL HISTORY He had prostate surgery in the past. FAMILY HISTORY Noncontributory. SOCIAL HISTORY Remote smoking history, does not smoke or drink at present. MEDICATIONS Current, 1. Pravastatin. 2. Hydrochlorothiazide. 3. Ampicillin. 4. Albuterol. 5. Metoprolol 6. Solu-Medrol. 7. Lisinopril 8. Famotidine 9. Pepcid REVIEW OF SYSTEMS 12-point review of systems as per outlined above, otherwise, on questioning the patient apparently snores intermittently and is tired during the daytime. PHYSICAL EXAMINATION GENERAL: The patient is alert. VITAL SIGNS: His temperature is 98, pulse 80, respirations 18, blood pressure 146, oxygen saturation 95% on 35% inspired oxygen fraction. HEENT: Exam unremarkable. Eyes without icterus. NECK: Without adenopathy or thyroid enlargement. Central trachea. CHEST: Scattered rhonchi bilaterally decreased with cough. CARDIAC: PMI distant. S1-S2 audible. No murmur or rub. ABDOMEN: Lax, audible bowel sounds. EXTREMITIES: No clubbing, cyanosis or edema. IMAGING STUDIES CT angiogram - no evidence of pulmonary embolism. small infiltrate in the right upper lobe. LABORATORY DATA White count upon presentation was 10,000, today 17,000, hemoglobin 11, hematocrit 32, platelets 341,000. Sodium 128, potassium 4.3, BUN 17, creatinine 0.8. Arterial blood gas - pH 7.42, pCO2 31, pO2 of 56. IMPRESSION 1. Hypoxic respiratory failure 2. Question COPD 3. Obesity 4. Sleep disorder breathing, obstructive sleep apnea suspect 5. Hypertension 6. Coronary artery disease. PLAN The cause of the patient's hypoxemia is multifactorial. He seems to have a URI at present. We will continue antibiotic therapy as well as bronchodilator therapy. Check his pulmonary function. Post discharge it will be worthwhile to assess possibility of sleep disordered breathing given the patient's body habitus as well as history. I do thank you for asking me to partake in Mr. Muniz's care. Bill Khan MD WWW/ /7:39 PM /8:34 PM
[2017-02-26] MEDS: PRAVASTATIN SOD 40 MG TAB PO SCH (21:15)
[2017-02-27] VITALS (24 sets, daily range): BP systolic 140–199; BP diastolic 76–96; PULSE 57–94; RESP 18–20; TEMP 97.3–98.5; O2SAT 91–99
[2017-02-27] MEDS: AMPICILLIN-SULBACTAM INJ 3 GM in SODIUM CHLORIDE 0.9% INJ 100 ML IV SCH ×5 (01:01→23:04)
[2017-02-27] MEDS: methylPREDNISolone SOD SUCC 40 MG/1 ML VIAL IV PUSH SCH ×5 (01:01→23:04)
[2017-02-27] MEDS: AZITHROMYCIN INJ 500 MG in SODIUM CHLOR 0.9% 250 ML INJ 250 ML IV SCH ×2 (01:02→23:05)
[2017-02-27] MEDS: RESP: ALBUTEROL 2.5 MG/IPRATROPIUM 0.5 MG NEB (PRN) NEB (06:12)
[2017-02-27] MEDS: RESP: ALBUTEROL 2.5 MG/IPRATROPIUM 0.5 MG NEB (SCH) NEB ×3 (08:13→20:04)
[2017-02-27] MEDS: FAMOTIDINE 20 MG TAB PO SCH ×2 (08:56→21:13)
[2017-02-27] MEDS: METOPROLOL TARTRATE 25 MG TAB PO SCH ×2 (08:56→21:13)
[2017-02-27] MEDS: HYDROCHLOROTHIAZIDE 25 MG TAB PO SCH (08:56)
[2017-02-27] MEDS: LORATADINE 10 MG TAB PO SCH (08:56)
[2017-02-27] MEDS: guaiFENesin E.R. 600 MG TAB PO SCH ×2 (08:56→21:13)
[2017-02-27] MEDS: LISINOPRIL 20 MG TAB PO SCH ×2 (08:56→21:13)
[2017-02-27] MEDS: DILTIAZEM-CD 240 MG CAP ER PO SCH (08:56)
[2017-02-27] MEDS: SODIUM CHLORIDE 0.9% FLUSH 10 ML FLUSH IV FLUSH SCH ×2 (08:57→21:13)
[2017-02-27 09:47] LABS: HEMATOCRIT 34.4 % (39.0-51.0); MEAN CELL VOLUME 87.3 FL (80.0-100.0); MEAN CORPUSCULAR HEMOGLOBIN 30.2 PG (27.0-34.0); MEAN CORPUSCULAR HGB CONC 34.6 % (32.0-36.0); PLATELET COUNT 340 TH/MM3 (150-450); RED BLOOD COUNT 3.95 MIL/MM3 (4.50-5.90); RED CELL DISTRIBUTION WIDTH 13.4 % (11.6-17.2); REVIEW FLAG FINAL
[2017-02-27 10:10] LABS: BICARBONATE 26.2 MEQ/L (21.0-32.0); POTASSIUM 4.1 MEQ/L (3.5-5.1)
--- NOTE | 2017-02-27 11:15 | HHI.PR ---
Subjective Remarks Mr. Muniz shows significant improvement today. He is still using oxygen, but his exertional tolerance is improving and he is seen sitting in a chair today. Blood Sodium levels are improved also (now 131). Hyponatremia may be related to a transient SIADH effect from pneumonia. He is safe for transfer to [facility] / [facility] and discontinuation of Bipap (no longer needing it). Objective Vital Signs Date Time Temp Pulse Resp B/P Pulse Ox O2 Delivery O2 Flow Rate FiO2 02/27/17 10:00 94 02/27/17 09:43 90 Nasal Cannula 4.00 02/27/17 09:00 84 02/27/17 08:20 99 BiPAP 45 02/27/17 08:16 99 40 02/27/17 07:00 98.5 70 20 148/77 98 02/27/17 07:00 Bi-Pap 45 02/27/17 07:00 80 02/27/17 06:15 97 45 02/27/17 06:00 93 Nasal Cannula 5.00 02/27/17 06:00 93 Nasal Cannula 4.00 Humidified 02/27/17 04:00 57 02/27/17 03:57 97 35 02/27/17 03:00 95 Bi-Pap 35 02/27/17 03:00 97.4 60 20 140/76 98 02/27/17 03:00 57 02/27/17 02:00 58 02/27/17 01:00 57 02/27/17 00:00 97.5 65 20 167/96 99 02/27/17 00:00 59 02/27/17 00:00 95 Bi-Pap 35 02/26/17 23:40 97 35 02/26/17 23:00 65 02/26/17 22:00 72 02/26/17 21:31 95 35 02/26/17 21:00 78 02/26/17 20:00 95 Bi-Pap 35 02/26/17 20:00 74 02/26/17 20:00 98.1 78 20 163/86 95 02/26/17 19:00 94 Nasal Cannula 4.00 02/26/17 19:00 87 02/26/17 18:00 95 02/26/17 17:00 72 02/26/17 16:45 94 Bi-Pap 35 02/26/17 16:42 95 35 02/26/17 16:41 97.4 84 20 152/83 94 02/26/17 16:41 75 02/26/17 14:53 96.4 70 18 140/66 93 02/26/17 12:30 98 35 I/O 02/26/17 02/26/17 02/26/17 02/27/17 02/27/17 02/27/17 07:00 15:00 23:00 07:00 15:00 23:00 Intake Total 808 ml 240 ml 590 ml Output Total 650 ml 800 ml Balance 158 ml 240 ml -210 ml Intake Oral 240 ml 240 ml IV Total 808 ml 350 ml Output Urine Total 650 ml 800 ml # Bowel Movements 0 Result Diagram: 02/27/17 0849 02/27/17 0849 Imaging Last Impressions Chest X-Ray 02/26/17 0000 Signed Impressions: Service Date/Time: Sunday, February 26, 2017 02:53 - CONCLUSION: No acute disease. Marcelo Campa Jr., MD CT Angiography 02/26/17 0000 Signed Impressions: Service Date/Time: Sunday, February 26, 2017 15:49 - CONCLUSION: 1. The study is negative for pulmonary embolism. 2. Subsegmental consolidation in the posterior segment of the right upper lobe and atelectasis in the right costophrenic angle. Marcelo Rain MD Head CT 02/24/172039 Signed Impressions: Service Date/Time: February 21:42 - CONCLUSION: Slight atrophic and small vessel ischemic changes without any evidence for acute hemorrhage or mass effect. Mary Ma MD Objective Remarks GENERAL: NAD, A&Ox3 SKIN: Warm and dry. HEAD: Normocephalic. EYES: No scleral icterus. No injection or drainage. NECK: Supple, trachea midline. No JVD or lymphadenopathy. CARDIOVASCULAR: Regular rate and rhythm without murmurs, gallops, or rubs. RESPIRATORY: Breath sounds equal bilaterally. No accessory muscle use. GASTROINTESTINAL: Abdomen soft, non-tender, nondistended. MUSCULOSKELETAL: No cyanosis, or edema. BACK: Nontender without obvious deformity. No CVA tenderness. Medications and IVs Administered Medications Medications (Trade) Dose Ordered Sig/Yue Route PRN Reason Start Time Stop Time Status Last Admin Dose Admin Azithromycin/ Sodium Chloride (Zithromax Inj/ NS 250 ml Inj) 250 ml @ 250 mls/hr Q24H IV 02/25/17 00:00 02/27/17 01:02 Sodium Chloride (NS Flush) 2 ml BID IV FLUSH 02/25/17 09:00 02/27/17 08:57 Guaifenesin (Mucinex Er) 600 mg BID PO 02/25/17 09:00 02/27/17 08:56 Lisinopril (Prinivil) 20 mg Q12HR PO 02/25/17 21:00 02/27/17 08:56 Diltiazem HCl (Cardizem Cd) 240 mg DAILY PO 02/25/17 14:30 02/27/17 08:56 Famotidine (Pepcid) 10 mg BID PO 02/25/17 21:00 02/27/17 08:56 Prednisone (Deltasone) 20 mg BID PO 02/25/17 15:00 Hold 02/25/17 20:34 Methylprednisolone Sodium Succinate (SoluMEDROL INJ) 40 mg Q6HR IV PUSH 02/26/17 06:30 02/27/17 05:55 Loratadine (Claritin) 10 mg DAILY PO 02/26/17 09:00 02/27/17 08:56 Pravastatin Sodium (Pravachol) 40 mg HS PO 02/26/17 21:00 02/26/17 21:15 Metoprolol Tartrate (Lopressor) 25 mg Q12HR PO 02/26/17 09:00 02/27/17 08:56 Albuterol Sulfate 2 puff 2 puff Q4H PRN INH SOB/WHEEZING 02/26/17 10:15 02/26/17 17:04 Ampicillin Sodium/ Sulbactam Sodium/ Sodium Chloride (Unasyn Inj/NS Inj) 100 ml @ 200 mls/hr Q6H IV 02/26/17 11:00 02/27/17 05:00 Hydrochlorothiazide (Hydrodiuril) 25 mg DAILY PO 02/26/17 14:45 02/27/17 08:56 A/P Problem List: (1) PNA (pneumonia) ICD Code: J18.9 Assessment & Plan: Continue Azithromycin and Unasyn Follow for improvement Oxygen PRN Ambulate Discontinue Bipap (2) Hypotension ICD Code: I95.9 Assessment & Plan: Resolved Follow BP (3) Syncope ICD Code: R55 Assessment & Plan: May be related to over treatment, infection, or hyponatremia Stable BPs now Follow BPs (4) Hyponatremia ICD Code: E87.1 Assessment & Plan: Improving through time Follow sodium levels Discharge Planning Further improvement in hyponatremia and a wean off oxygen with tolerance of ambulation are goals prior to discharge. Problem Qualifiers (1) Hypotension: Qualified Code: I95.2 - Hypotension due to drugs (2) Syncope: Qualified Code: R55 - Syncope, unspecified syncope type Roel Murdock MD Feb 27, 2017 11:15
--- NOTE | 2017-02-27 13:10 | HHI.PR ---
Subjective Remarks alert appetite good no sob at rest Objective GENERAL: SKIN: Warm and dry. HEAD: Atraumatic. Normocephalic. EYES: Pupils equal and round. No scleral icterus. No injection or drainage. ENT: No nasal bleeding or discharge. Mucous membranes pink and moist. NECK: Trachea midline. No JVD. CARDIOVASCULAR: Regular rate and rhythm. RESPIRATORY: No accessory muscle use. Clear to auscultation. Breath sounds equal bilaterally. GASTROINTESTINAL: Abdomen soft, non-tender, nondistended. Hepatic and splenic margins not palpable. MUSCULOSKELETAL: Extremities without clubbing, cyanosis, or edema. No obvious deformities. NEUROLOGICAL: Awake and alert. No obvious cranial nerve deficits. Motor grossly within normal limits. Five out of 5 muscle strength in the arms and legs. Normal speech. PSYCHIATRIC: Appropriate mood and affect; insight and judgment normal. Vital Signs Date Time Temp Pulse Resp B/P Pulse Ox O2 Delivery O2 Flow Rate FiO2 02/27/17 12:00 75 02/27/17 11:00 97.7 76 20 170/77 94 02/27/17 11:00 94 Nasal Cannula 4.00 Bi-Pap 02/27/17 11:00 83 02/27/17 10:00 94 02/27/17 09:43 90 Nasal Cannula 4.00 02/27/17 09:00 84 02/27/17 08:20 99 BiPAP 45 02/27/17 08:16 99 40 02/27/17 07:00 98.5 70 20 148/77 98 02/27/17 07:00 Bi-Pap 45 02/27/17 07:00 80 02/27/17 06:15 97 45 02/27/17 06:00 93 Nasal Cannula 5.00 02/27/17 06:00 93 Nasal Cannula 4.00 Humidified 02/27/17 04:00 57 02/27/17 03:57 97 35 02/27/17 03:00 95 Bi-Pap 35 02/27/17 03:00 97.4 60 20 140/76 98 02/27/17 03:00 57 02/27/17 02:00 58 02/27/17 01:00 57 02/27/17 00:00 97.5 65 20 167/96 99 02/27/17 00:00 59 02/27/17 00:00 95 Bi-Pap 35 02/26/17 23:40 97 35 02/26/17 23:00 65 02/26/17 22:00 72 02/26/17 21:31 95 35 02/26/17 21:00 78 02/26/17 20:00 95 Bi-Pap 35 02/26/17 20:00 74 02/26/17 20:00 98.1 78 20 163/86 95 02/26/17 19:00 94 Nasal Cannula 4.00 02/26/17 19:00 87 02/26/17 18:00 95 02/26/17 17:00 72 02/26/17 16:45 94 Bi-Pap 35 02/26/17 16:42 95 35 02/26/17 16:41 97.4 84 20 152/83 94 02/26/17 16:41 75 02/26/17 14:53 96.4 70 18 140/66 93 I/O 02/26/17 02/26/17 02/26/17 02/27/17 02/27/17 02/27/17 07:00 15:00 23:00 07:00 15:00 23:00 Intake Total 808 ml 240 ml 590 ml Output Total 650 ml 800 ml Balance 158 ml 240 ml -210 ml Intake Oral 240 ml 240 ml IV Total 808 ml 350 ml Output Urine Total 650 ml 800 ml # Bowel Movements 0 Result Diagram: 02/27/17 0849 02/27/17 0849 Assessment and Plan Assessment and Plan respiratory failre ? copd ?chelsy ?pna obesity PLAN: O2 ANTIBIOTICS BRONCHODILATOR THERAPY TAPER STEROIDS F/U CXRAY NPSG POST DC Bill Khan MD Feb 27, 2017 13:10
--- NOTE | 2017-02-27 14:56 | RADRPT ---
EXAM DATE/TIME: 02/27/2017 14:48 [facility] COMPARISON: No previous studies available for comparison. INDICATIONS : Evaluate for pneumonia MEDICAL HISTORY : None. SURGICAL HISTORY : None. ENCOUNTER: Initial ACUITY: 4 - 6 days PAIN SCORE: 0/10 LOCATION: Bilateral chest FINDINGS: The heart size is normal. There is minimal increased density at the right lateral base. The left lung is clear. No effusion is seen. Spurs are seen in the thoracic spine. CONCLUSION: Minimal area of atelectasis or consolidation at the lateral right base. Willi Cunha MD on February 27, 2017 at 14:54 Board Certified Radiologist. This report was verified electronically.
[2017-02-27] MEDS: PRAVASTATIN SOD 40 MG TAB PO SCH (21:13)
[2017-02-28] VITALS (20 sets, daily range): BP systolic 141–224; BP diastolic 65–157; PULSE 57–92; RESP 18–24; TEMP 97.4–98.2; O2SAT 87–100
[2017-02-28] MEDS: RESP: ALBUTEROL 2.5 MG/IPRATROPIUM 0.5 MG NEB (PRN) NEB ×4 (02:23→16:14)
[2017-02-28 03:08] LABS: BLOOD GAS BASE EXCESS 0.7 mmol/L (-2-2); BLOOD GAS CARBOXYHEMOGLOBIN 1.1 % (0-4); BLOOD GAS HCO3 25 mmol/L (22-26); BLOOD GAS METHEMOGLOBIN 0.9 % (0-2); BLOOD GAS O2 HGB SATURATION 96 % (90-100); BLOOD GAS OXYGEN CONTENT 17.5 Vol % (12.0-20.0); BLOOD GAS PCO2 42 mmHg (38-42); BLOOD GAS PO2 103 mmHg (61-120); BLOOD GAS TOTAL HGB 12.9 G/DL (12.0-16.0); TEMP CORR TO 98.6
[2017-02-28 03:09] LABS: CRITICAL VALUE NO; DRAW SITE RT RADIAL; FIO2 100 %; LITER FLOW 15 L/M; NUMBER OF ARTERIAL PUNCTURES 1; OXYGEN DEVICE NONE REBREATHER; STAT YES; ULNAR PULSE PRESENT
[2017-02-28] MEDS ORDERED: methylPREDNISolone SOD SUCC 125 MG/2 ML VIAL IV PUSH ONE (03:15)
[2017-02-28] MEDS ORDERED: LORazepam 2 MG/ML VIAL IV PUSH ONE (03:30)
[2017-02-28] MEDS ORDERED: FUROSEMIDE 20 MG/2 ML VIAL IV PUSH ONE (03:30)
--- NOTE | 2017-02-28 03:43 | HHI.PR ---
Addendum to Inpatient Note Addendum Reason: Additional Documentation Additional Information AC was called on Mr. Muniz who is a 76 y/o male with a history of asthma who was getting back in bed after using the urinal and developed respiratory distress. At the time that I arrived, he was utilizing accessory muscles and breathing about 40 bpm on 100% nonrebreather with oxygen saturation of 96% BP 200's/100's- his lung sounds demonstrated diffuse inspiratory and expiratory wheezing throughout - the patient is also notably anxious. ABGs were normal on nonrebreather. I was initially planning to put him on CPAP but cancelled the order after reviewing ABGs. CT pulmonary angiogram on 02/26 was negative for PE (following similar episode). Right lateral base with area of consolidation or atelectasis on CXR today. He is on IV antibiotics - Unasyn and Azithromycin - Dr. Khan, pulmonology, is also following. Solumedrol 125 mg IV ordered. Discussed with supervising physician Dr. Rogers. Suspect asthma exacerbation - possible anxiety component and perhaps underlying COPD given remote history of smoking x 20 years. BNP was 219 on 02/26. Orders: Ativan 1 mg IV x 1 dose and Lasix 20 mg IV x one dose as well as Solumedrol as previously mentioned. Symptoms were improving following treatment. Will continue to monitor closely. . Maisha Ferguson Feb 28, 2017 03:43
[2017-02-28] MEDS: AMPICILLIN-SULBACTAM INJ 3 GM in SODIUM CHLORIDE 0.9% INJ 100 ML IV SCH ×4 (04:55→23:13)
[2017-02-28] MEDS: methylPREDNISolone SOD SUCC 40 MG/1 ML VIAL IV PUSH SCH (05:01)
[2017-02-28] MEDS: RESP: ALBUTEROL 2.5 MG/IPRATROPIUM 0.5 MG NEB (SCH) NEB ×3 (07:50→20:22)
[2017-02-28 08:47] LABS: HEMATOCRIT 35.7 % (39.0-51.0); MEAN CELL VOLUME 87.2 FL (80.0-100.0); MEAN CORPUSCULAR HEMOGLOBIN 29.6 PG (27.0-34.0); PLATELET COUNT 373 TH/MM3 (150-450); RED CELL DISTRIBUTION WIDTH 13.3 % (11.6-17.2); REVIEW FLAG FINAL; WHITE BLOOD COUNT 17.4 TH/MM3 (4.0-11.0)
--- NOTE | 2017-02-28 09:02 | RADRPT ---
EXAM DATE/TIME: 02/28/2017 08:37 [facility] COMPARISON: CHEST SINGLE AP, February 26, 2017, 2:53. INDICATIONS : Short of breath MEDICAL HISTORY : None. SURGICAL HISTORY : None. ENCOUNTER: Subsequent ACUITY: 1 week PAIN SCORE: 0/10 LOCATION: Bilateral chest FINDINGS: A single view of the chest demonstrates minimal right basilar density. Left lung clear. Heart normal in size. The cardiomediastinal contours are unremarkable. Osseous structures are intact. CONCLUSION: Right basilar atelectasis. Law Tadeo MD on February 28, 2017 at 9:00 Board Certified Radiologist. This report was verified electronically.
[2017-02-28 09:15] LABS: BICARBONATE 28.6 MEQ/L (21.0-32.0); POTASSIUM 3.5 MEQ/L (3.5-5.1)
[2017-02-28] MEDS ORDERED: DILTIAZEM HCL 60 MG TAB PO SCH (09:15)
[2017-02-28] MEDS: SODIUM CHLORIDE 0.9% FLUSH 10 ML FLUSH IV FLUSH SCH ×2 (10:02→20:46)
[2017-02-28] MEDS: DILTIAZEM-CD 240 MG CAP ER PO SCH (10:02)
[2017-02-28] MEDS: METOPROLOL TARTRATE 25 MG TAB PO SCH (10:03)
[2017-02-28] MEDS: LORATADINE 10 MG TAB PO SCH (10:03)
[2017-02-28] MEDS: guaiFENesin E.R. 600 MG TAB PO SCH ×2 (10:03→20:46)
[2017-02-28] MEDS: LISINOPRIL 20 MG TAB PO SCH ×2 (10:03→20:46)
[2017-02-28] MEDS: HYDROCHLOROTHIAZIDE 25 MG TAB PO SCH (10:03)
[2017-02-28] MEDS: FAMOTIDINE 20 MG TAB PO SCH ×2 (10:04→20:48)
[2017-02-28] MEDS ORDERED: FUROSEMIDE 40 MG/4 ML VIAL IV PUSH ONE (10:30)
--- NOTE | 2017-02-28 11:10 | HHI.PR ---
Subjective Remarks Despite improvement through yesterday, Mr. Muniz had an acute change overnight, at around 2:30am, with an onset of chest congestion and acute respiratory distress. Etiology appears to be flash pulmonary edema, which may explain his prior episode like this (presumed to be COPD Exacerbation and Pneumonia earlier) . Systolic Blood pressures were at 200mmHg when the event occurred. BPs are not yet normalized. I have provided additional diuresis and adjusted his BP treatments in an attempt to gain better control of his BPs. Objective Vital Signs Date Time Temp Pulse Resp B/P Pulse Ox O2 Delivery O2 Flow Rate FiO2 02/28/17 08:08 96 50 02/28/17 07:58 92 Venturi Mask 50 02/28/17 04:00 97.7 76 18 181/84 94 02/28/17 04:00 97.7 76 18 02/28/17 03:29 95 Venturi Mask 50 02/28/17 03:00 97.6 80 24 200/93 98 02/28/17 03:00 96 Non-Rebreather 15.00 02/28/17 02:58 96 15.00 100 02/28/17 02:48 80 02/28/17 02:47 97.8 89 20 224/157 87 02/28/17 02:27 88 Nasal Cannula 4.00 02/28/17 00:00 97.4 68 18 172/83 97 02/27/17 21:13 Nasal Cannula 4.00 02/27/17 21:10 74 02/27/17 21:00 97.6 81 18 199/76 95 02/27/17 20:07 96 Nasal Cannula 4.00 02/27/17 17:00 Nasal Cannula 4.00 02/27/17 16:51 97.3 72 20 172/77 95 02/27/17 16:00 68 02/27/17 15:00 67 02/27/17 15:00 94 Nasal Cannula 4.00 02/27/17 15:00 98.1 74 20 160/79 91 02/27/17 14:00 69 02/27/17 13:21 93 Nasal Cannula 5.00 02/27/17 13:00 75 02/27/17 12:00 75 I/O 02/27/17 02/27/17 02/27/17 02/28/17 02/28/17 02/28/17 07:00 15:00 23:00 07:00 15:00 23:00 Intake Total 590 ml 1450 ml 640 ml Output Total 800 ml 1100 ml 1050 ml Balance -210 ml 350 ml -410 ml Intake Oral 240 ml 1250 ml 240 ml IV Total 350 ml 200 ml 400 ml Output Urine Total 800 ml 1100 ml 1050 ml # Bowel Movements 0 0 0 Result Diagram: 02/28/17 0750 02/28/17 0750 Objective Remarks GENERAL: NAD, A&Ox3 SKIN: Warm and dry. HEAD: Normocephalic. EYES: No scleral icterus. No injection or drainage. NECK: Supple, trachea midline. No JVD or lymphadenopathy. CARDIOVASCULAR: Regular rate and rhythm without murmurs, gallops, or rubs. RESPIRATORY: Breath sounds equal bilaterally. No accessory muscle use. GASTROINTESTINAL: Abdomen soft, non-tender, nondistended. MUSCULOSKELETAL: No cyanosis, or edema. BACK: Nontender without obvious deformity. No CVA tenderness. Medications and IVs Administered Medications Medications (Trade) Dose Ordered Sig/Yue Route PRN Reason Start Time Stop Time Status Last Admin Dose Admin Azithromycin/ Sodium Chloride (Zithromax Inj/ NS 250 ml Inj) 250 ml @ 250 mls/hr Q24H IV 02/25/17 00:00 02/27/17 23:05 Sodium Chloride (NS Flush) 2 ml BID IV FLUSH 02/25/17 09:00 02/28/17 10:02 Guaifenesin (Mucinex Er) 600 mg BID PO 02/25/17 09:00 02/28/17 10:03 Lisinopril (Prinivil) 20 mg Q12HR PO 02/25/17 21:00 02/28/17 10:03 Famotidine (Pepcid) 10 mg BID PO 02/25/17 21:00 02/28/17 10:04 Prednisone (Deltasone) 20 mg BID PO 02/25/17 15:00 Hold 02/25/17 20:34 Loratadine (Claritin) 10 mg DAILY PO 02/26/17 09:00 02/28/17 10:03 Pravastatin Sodium (Pravachol) 40 mg HS PO 02/26/17 21:00 02/27/17 21:13 Albuterol Sulfate 2 puff 2 puff Q4H PRN INH SOB/WHEEZING 02/26/17 10:15 02/26/17 17:04 Ampicillin Sodium/ Sulbactam Sodium/ Sodium Chloride (Unasyn Inj/NS Inj) 100 ml @ 200 mls/hr Q6H IV 02/26/17 11:00 02/28/17 04:55 Hydrochlorothiazide (Hydrodiuril) 25 mg DAILY PO 02/26/17 14:45 02/28/17 10:03 A/P Problem List: (1) PNA (pneumonia) ICD Code: J18.9 Assessment & Plan: Continue Azithromycin and Unasyn Now that flash pulmonary edema is a diagnosis, a false positive finding of pneumonia might be present Follow for improvement Oxygen PRN Ambulate (2) Hypotension ICD Code: I95.9 Assessment & Plan: Resolved 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 (taken prior to onset) Now uncontrolled HTN is present Follow BP (3) Syncope ICD Code: R55 Assessment & Plan: May be related to over treatment, infection, or hyponatremia Stable BPs now Follow BPs (4) Hyponatremia ICD Code: E87.1 Assessment & Plan: Improving through time Follow sodium levels (5) Flash pulmonary edema ICD Code: J81.0 Assessment & Plan: Improved on diuresis Need to optimize blood pressure control HCTZ BID continued Use lasix intermittantly if needed for fluid balance Diltiazem increased Metoprolol increased PRN Clonidine Follow blood pressures Discharge Planning Further improvement in hyponatremia and a wean off oxygen with tolerance of ambulation are goals prior to discharge. Problem Qualifiers (1) Hypotension: Qualified Code: I95.2 - Hypotension due to drugs (2) Syncope: Qualified Code: R55 - Syncope, unspecified syncope type Roel Murdock MD Feb 28, 2017 11:10
--- NOTE | 2017-02-28 17:34 | HHI.PR ---
Subjective Remarks alert appetite good no sob at rest obtunded this am much better after PAP therapy Objective Vital Signs Date Time Temp Pulse Resp B/P Pulse Ox O2 Delivery O2 Flow Rate FiO2 02/28/17 15:03 94 Nasal Cannula 4.00 02/28/17 12:00 97.6 73 20 163/76 97 02/28/17 11:43 94 Nasal Cannula 5.00 02/28/17 08:08 96 50 02/28/17 08:00 97.4 92 18 168/79 90 02/28/17 07:58 92 Venturi Mask 50 02/28/17 04:00 97.7 76 18 181/84 94 02/28/17 04:00 97.7 76 18 02/28/17 03:29 95 Venturi Mask 50 02/28/17 03:00 97.6 80 24 200/93 98 02/28/17 03:00 96 Non-Rebreather 15.00 02/28/17 02:58 96 15.00 100 02/28/17 02:48 80 02/28/17 02:47 97.8 89 20 224/157 87 02/28/17 02:27 88 Nasal Cannula 4.00 02/28/17 00:00 97.4 68 18 172/83 97 02/27/17 21:13 Nasal Cannula 4.00 02/27/17 21:10 74 02/27/17 21:00 97.6 81 18 199/76 95 02/27/17 20:07 96 Nasal Cannula 4.00 I/O 02/27/17 02/27/17 02/27/17 02/28/17 02/28/17 02/28/17 07:00 15:00 23:00 07:00 15:00 23:00 Intake Total 590 ml 1450 ml 640 ml Output Total 800 ml 1100 ml 1050 ml 1 ml Balance -210 ml 350 ml -410 ml -1 ml Intake Oral 240 ml 1250 ml 240 ml IV Total 350 ml 200 ml 400 ml Output Urine Total 800 ml 1100 ml 1050 ml Stool Total 1 ml # Bowel Movements 0 0 0 Result Diagram: 02/28/17 0750 02/28/17 0750 Medications and IVs GENERAL: SKIN: Warm and dry. HEAD: Atraumatic. Normocephalic. EYES: Pupils equal and round. No scleral icterus. No injection or drainage. ENT: No nasal bleeding or discharge. Mucous membranes pink and moist. NECK: Trachea midline. No JVD. CARDIOVASCULAR: Regular rate and rhythm. RESPIRATORY: No accessory muscle use. Clear to auscultation. Breath sounds equal bilaterally. GASTROINTESTINAL: Abdomen soft, non-tender, nondistended. Hepatic and splenic margins not palpable. MUSCULOSKELETAL: Extremities without clubbing, cyanosis, or edema. No obvious deformities. NEUROLOGICAL: Awake and alert. No obvious cranial nerve deficits. Motor grossly within normal limits. Five out of 5 muscle strength in the arms and legs. Normal speech. PSYCHIATRIC: Appropriate mood and affect; insight and judgment normal. Assessment and Plan Assessment and Plan respiratory failre ? copd ?chelsy ?pna obesity PLAN: O2 ANTIBIOTICS BRONCHODILATOR THERAPY TAPER STEROIDS CPAP while sleeping NPSG POST DC Bill Khan MD Feb 28, 2017 17:34
[2017-02-28] MEDS ORDERED: HYDROCHLOROTHIAZIDE 12.5 MG CAP PO SCH (18:00)
[2017-02-28] MEDS: METOPROLOL TARTRATE 50 MG TAB PO SCH (20:46)
[2017-02-28] MEDS: PRAVASTATIN SOD 40 MG TAB PO SCH (20:46)
[2017-02-28] MEDS: cloNIDine HCL 0.1 MG TAB PO PRN (23:22)
[2017-03-01] VITALS (10 sets, daily range): BP systolic 120–163; BP diastolic 58–78; PULSE 53–69; RESP 16–20; TEMP 97.4–98.1; O2SAT 95–100
[2017-03-01] MEDS: AZITHROMYCIN INJ 500 MG in SODIUM CHLOR 0.9% 250 ML INJ 250 ML IV SCH ×2 (00:22→23:10)
[2017-03-01] MEDS: AMPICILLIN-SULBACTAM INJ 3 GM in SODIUM CHLORIDE 0.9% INJ 100 ML IV SCH ×4 (05:14→23:16)
[2017-03-01] MEDS: cloNIDine HCL 0.1 MG TAB PO PRN (06:40)
[2017-03-01] MEDS: RESP: ALBUTEROL 2.5 MG/IPRATROPIUM 0.5 MG NEB (SCH) NEB ×2 (08:07→12:39)
[2017-03-01] MEDS: FAMOTIDINE 20 MG TAB PO SCH ×2 (09:47→20:52)
[2017-03-01] MEDS: guaiFENesin E.R. 600 MG TAB PO SCH ×2 (09:47→20:53)
[2017-03-01] MEDS: DILTIAZEM-CD 300 MG CAP ER PO SCH (09:47)
[2017-03-01] MEDS: SODIUM CHLORIDE 0.9% FLUSH 10 ML FLUSH IV FLUSH SCH ×2 (09:48→20:51)
[2017-03-01] MEDS: LORATADINE 10 MG TAB PO SCH (09:48)
[2017-03-01] MEDS: HYDROCHLOROTHIAZIDE 25 MG TAB PO SCH (09:48)
[2017-03-01] MEDS: LISINOPRIL 20 MG TAB PO SCH ×2 (09:48→20:52)
[2017-03-01] MEDS: METOPROLOL TARTRATE 50 MG TAB PO SCH ×2 (09:48→20:54)
--- NOTE | 2017-03-01 16:25 | HHI.PR ---
Subjective Remarks Patient still on 5 L nasal cannula Positive wheezes and leg edema He think he is better now, discussed with the nurse was informed patient had halicat yesterday We'll try to wean down oxygen Objective Vitals Vital Signs Date Time Temp Pulse Resp B/P Pulse Ox O2 Delivery O2 Flow Rate FiO2 03/01/17 16:17 98 Nasal Cannula 4.00 03/01/17 12:00 97.7 63 20 133/74 98 03/01/17 11:00 98 Nasal Cannula 4.00 03/01/17 09:55 95 Nasal Cannula 4.00 03/01/17 09:45 69 03/01/17 08:10 95 Nasal Cannula 5.00 03/01/17 08:00 97.9 65 20 163/78 97 03/01/17 04:22 98.1 62 20 133/72 100 02/28/17 23:15 97.6 57 18 173/88 100 02/28/17 21:13 97 50 02/28/17 20:46 Nasal Cannula 4.00 02/28/17 20:42 98.2 73 18 153/69 96 02/28/17 20:22 94 Nasal Cannula 5.00 02/28/17 19:47 70 02/28/17 18:00 82 I/O 02/28/17 02/28/17 02/28/17 03/01/17 03/01/17 03/01/17 07:00 15:00 23:00 07:00 15:00 23:00 Intake Total 640 ml 720 ml 640 ml 360 ml 360 ml Output Total 1050 ml 900 ml 1 ml 550 ml Balance -410 ml -180 ml 639 ml -190 ml 360 ml Intake Oral 240 ml 720 ml 240 ml 0 ml 360 ml IV Total 400 ml 400 ml 360 ml Output Urine Total 1050 ml 900 ml 0 ml 550 ml Stool Total 1 ml # Voids 0 2 # Bowel Movements 0 1 0 0 Result Diagram: 02/28/17 0750 02/28/17 0750 Objective Remarks GENERAL: This is a 76 years old male on 5 L oxygen SKIN: No rashes, warm and dry HEAD: Atraumatic. Normocephalic. EYES: Pupils equal round and reactive. Extraocular motions intact. No scleral icterus. ENT: Nose without bleeding, or drainage, Airway patent. NECK: Trachea midline. Supple CARDIOVASCULAR: Regular rate and rhythm without murmurs, gallops, or rubs. RESPIRATORY: Diminished breath sounds with lateral wheezing GASTROINTESTINAL: Abdomen soft, non-tender, nondistended. Positive bowel sounds MUSCULOSKELETAL: Extremities without clubbing, cyanosis, was 1 edema. Pedal pulses appreciated NEUROLOGICAL: Awake and alert. Moves all extremity. Normal speech.no focal neurological deficit A/P Problem List: (1) Syncope ICD Code: R55 Status: Acute (2) Hypotension ICD Code: I95.9 Status: Acute (3) Dehydration ICD Code: E86.0 Status: Acute (4) Hyponatremia ICD Code: E87.1 Status: Acute (5) PNA (pneumonia) ICD Code: J18.9 Status: Acute Assessment and Plan 03/01: Still on 5 L Nasal cannula, WBC 17.4 K, will try to wean down O2, blood pressure stabilized after stopping Cardura, monitor BMP, patient is not on steroids will resume by mouth prednisone 76 years old male with past medical history of hypertension coronary artery disease anxiety presented with syncopal episode A/P: Respiratory failure suspect COPD versus pneumonia versus ARASH Possible pneumonia with RUL infiltrate on chest x-ray Suspect underlying ARASH Syncope with hypotension Hyponatremia most due to dehydration DVT prophylaxis Plan: On azithromycin and Unasyn, DuoNeb, taper steroid, C Pap while asleep Appreciate pulmonology consult, continue on above management and monitor Continue hydrochlorothiazide diltiazem metoprolol and clonidine when necessary Hyponatremia improved Problem Qualifiers (1) Syncope: Qualified Code: R55 - Syncope, unspecified syncope type (2) Hypotension: Qualified Code: I95.2 - Hypotension due to drugs Fausto Schaffer MD Mar 01, 2017 16:25 Fausto Schaffer MD Mar 01, 2017 16:25
--- NOTE | 2017-03-01 18:54 | HHI.PR ---
Subjective Remarks alert appetite good no sob at rest obtunded this am much better after PAP therapy Objective Vital Signs Date Time Temp Pulse Resp B/P Pulse Ox O2 Delivery O2 Flow Rate FiO2 03/01/17 16:17 98 Nasal Cannula 4.00 03/01/17 16:00 97.8 53 16 120/58 97 03/01/17 12:00 97.7 63 20 133/74 98 03/01/17 11:00 98 Nasal Cannula 4.00 03/01/17 09:55 95 Nasal Cannula 4.00 03/01/17 09:45 69 03/01/17 08:10 95 Nasal Cannula 5.00 03/01/17 08:00 97.9 65 20 163/78 97 03/01/17 04:22 98.1 62 20 133/72 100 02/28/17 23:15 97.6 57 18 173/88 100 02/28/17 21:13 97 50 02/28/17 20:46 Nasal Cannula 4.00 02/28/17 20:42 98.2 73 18 153/69 96 02/28/17 20:22 94 Nasal Cannula 5.00 02/28/17 19:47 70 I/O 02/28/17 02/28/17 02/28/17 03/01/17 03/01/17 03/01/17 07:00 15:00 23:00 07:00 15:00 23:00 Intake Total 640 ml 720 ml 640 ml 360 ml 360 ml 240 ml Output Total 1050 ml 900 ml 1 ml 550 ml Balance -410 ml -180 ml 639 ml -190 ml 360 ml 240 ml Intake Oral 240 ml 720 ml 240 ml 0 ml 360 ml 240 ml IV Total 400 ml 400 ml 360 ml Output Urine Total 1050 ml 900 ml 0 ml 550 ml Stool Total 1 ml # Voids 0 2 # Bowel Movements 0 1 0 0 Result Diagram: 02/28/17 0750 02/28/17 0750 Medications and IVs GENERAL: SKIN: Warm and dry. HEAD: Atraumatic. Normocephalic. EYES: Pupils equal and round. No scleral icterus. No injection or drainage. ENT: No nasal bleeding or discharge. Mucous membranes pink and moist. NECK: Trachea midline. No JVD. CARDIOVASCULAR: Regular rate and rhythm. RESPIRATORY: No accessory muscle use. Clear to auscultation. Breath sounds equal bilaterally. GASTROINTESTINAL: Abdomen soft, non-tender, nondistended. Hepatic and splenic margins not palpable. MUSCULOSKELETAL: Extremities without clubbing, cyanosis, or edema. No obvious deformities. NEUROLOGICAL: Awake and alert. No obvious cranial nerve deficits. Motor grossly within normal limits. Five out of 5 muscle strength in the arms and legs. Normal speech. PSYCHIATRIC: Appropriate mood and affect; insight and judgment normal. Assessment and Plan Assessment and Plan respiratory failre ? copd ?chelsy ?pna obesity PLAN: O2 ANTIBIOTICS BRONCHODILATOR THERAPY TAPER STEROIDS CPAP while sleeping NPSG POST DC Bill Khan MD Mar 01, 2017 18:54
[2017-03-01] MEDS: PRAVASTATIN SOD 40 MG TAB PO SCH (20:52)
[2017-03-01] MEDS: predniSONE 20 MG TAB PO SCH (20:52)
[2017-03-02] VITALS (11 sets, daily range): BP systolic 134–185; BP diastolic 64–96; PULSE 51–61; RESP 16–20; TEMP 97.4–98.4; O2SAT 95–100
[2017-03-02] MEDS: AMPICILLIN-SULBACTAM INJ 3 GM in SODIUM CHLORIDE 0.9% INJ 100 ML IV SCH ×4 (04:21→23:19)
[2017-03-02] MEDS: cloNIDine HCL 0.1 MG TAB PO PRN (04:22)
[2017-03-02] MEDS: RESP: ALBUTEROL 2.5 MG/IPRATROPIUM 0.5 MG NEB (PRN) NEB (04:38)
[2017-03-02 07:37] LABS: WHITE BLOOD COUNT 14.6 TH/MM3 (4.0-11.0)
[2017-03-02 07:38] LABS: AUTOMATED NEUTROPHIL # 13.4 TH/MM3 (1.8-7.7); BASOPHIL % 0.1 % (0.0-2.0); HEMATOCRIT 35.3 % (39.0-51.0); HEMO FLAGS DIFF FINAL; LYMPH % 3.6 % (9.0-44.0); LYMPHOCYTE # 0.5 TH/MM3 (1.0-4.8); MEAN CELL VOLUME 87.6 FL (80.0-100.0); MEAN CORPUSCULAR HEMOGLOBIN 30.1 PG (27.0-34.0); MEAN CORPUSCULAR HGB CONC 34.4 % (32.0-36.0); MONO % 4.4 % (0.0-8.0); NEUT % 91.9 % (16.0-70.0); PLATELET COUNT 342 TH/MM3 (150-450); RED BLOOD COUNT 4.02 MIL/MM3 (4.50-5.90)
[2017-03-02] MEDS: LORATADINE 10 MG TAB PO SCH (08:00)
[2017-03-02] MEDS: METOPROLOL TARTRATE 50 MG TAB PO SCH ×2 (08:00→20:52)
[2017-03-02] MEDS: LISINOPRIL 20 MG TAB PO SCH ×2 (08:00→20:45)
[2017-03-02] MEDS: guaiFENesin E.R. 600 MG TAB PO SCH ×2 (08:00→20:45)
[2017-03-02] MEDS: FAMOTIDINE 20 MG TAB PO SCH ×2 (08:00→20:45)
[2017-03-02] MEDS: DILTIAZEM-CD 300 MG CAP ER PO SCH (08:00)
[2017-03-02] MEDS: predniSONE 20 MG TAB PO SCH ×2 (08:00→20:52)
[2017-03-02] MEDS: SODIUM CHLORIDE 0.9% FLUSH 10 ML FLUSH IV FLUSH SCH ×2 (08:01→20:52)
[2017-03-02] MEDS: HYDROCHLOROTHIAZIDE 25 MG TAB PO SCH (08:01)
[2017-03-02 08:02] LABS: BICARBONATE 31.3 MEQ/L (21.0-32.0); POTASSIUM 3.6 MEQ/L (3.5-5.1)
--- NOTE | 2017-03-02 13:42 | HHI.PR ---
Subjective Remarks Resting on his chair decreased WBC and improved sodium today is still on 4 L oxygen Pulmonology following, afebrile Objective Vitals Vital Signs Date Time Temp Pulse Resp B/P Pulse Ox O2 Delivery O2 Flow Rate FiO2 03/02/17 12:00 97.5 58 16 169/77 95 03/02/17 10:04 Nasal Cannula 4.00 50 03/02/17 08:27 97 Nasal Cannula 3.00 03/02/17 08:00 97.9 56 16 155/72 97 03/02/17 04:42 Nasal Cannula 5.00 03/02/17 04:08 97.4 60 18 185/94 100 182/96 03/02/17 04:04 98 50 03/01/17 23:45 97.4 60 18 159/76 98 03/01/17 23:25 98 50 03/01/17 20:30 97.4 56 18 151/72 97 03/01/17 20:00 98 Nasal Cannula 4.00 03/01/17 19:06 98 Nasal Cannula 5.00 03/01/17 16:17 98 Nasal Cannula 4.00 03/01/17 16:00 97.8 53 16 120/58 97 I/O 03/01/17 03/01/17 03/01/17 03/02/17 03/02/17 03/02/17 07:00 15:00 23:00 07:00 15:00 23:00 Intake Total 360 ml 360 ml 840 ml 0 ml Output Total 550 ml 800 ml 1 ml Balance -190 ml 360 ml 40 ml -1 ml Intake Oral 0 ml 360 ml 840 ml 0 ml IV Total 360 ml Output Urine Total 550 ml 800 ml 1 ml # Voids 0 2 # Bowel Movements 0 1 Result Diagram: 03/02/1725 03/02/1725 Objective Remarks GENERAL: This is a 76 years old male on 5 L oxygen SKIN: No rashes, warm and dry HEAD: Atraumatic. Normocephalic. EYES: Pupils equal round and reactive. Extraocular motions intact. No scleral icterus. ENT: Nose without bleeding, or drainage, Airway patent. NECK: Trachea midline. Supple CARDIOVASCULAR: Regular rate and rhythm without murmurs, gallops, or rubs. RESPIRATORY: Diminished breath sounds with lateral wheezing GASTROINTESTINAL: Abdomen soft, non-tender, nondistended. Positive bowel sounds MUSCULOSKELETAL: Extremities without clubbing, cyanosis, was 1 edema. Pedal pulses appreciated NEUROLOGICAL: Awake and alert. Moves all extremity. Normal speech.no focal neurological deficit A/P Problem List: (1) Syncope ICD Code: R55 Status: Acute (2) Hypotension ICD Code: I95.9 Status: Acute (3) Dehydration ICD Code: E86.0 Status: Acute (4) Hyponatremia ICD Code: E87.1 Status: Acute (5) PNA (pneumonia) ICD Code: J18.9 Status: Acute Assessment and Plan 03/01: Still on 5 L Nasal cannula, WBC 17.4 K, will try to wean down O2, blood pressure stabilized after stopping Cardura, monitor BMP, patient is not on steroids will resume by mouth prednisone 03/02: On 4 L today, WBC trending down, sodium improved, continue antibiotic and prednisone, follow with pulmonology 76 years old male with past medical history of hypertension coronary artery disease anxiety presented with syncopal episode A/P: Respiratory failure suspect COPD versus pneumonia versus ARASH Possible pneumonia with RUL infiltrate on chest x-ray Suspect underlying ARASH Syncope with hypotension Hyponatremia most due to dehydration DVT prophylaxis Plan: On azithromycin and Unasyn, DuoNeb, taper steroid, C Pap while asleep Appreciate pulmonology consult, continue on above management and monitor Continue hydrochlorothiazide diltiazem metoprolol and clonidine when necessary Hyponatremia improved Problem Qualifiers (1) Syncope: Qualified Code: R55 - Syncope, unspecified syncope type (2) Hypotension: Qualified Code: I95.2 - Hypotension due to drugs Fausto Schaffer MD Mar 02, 2017 13:42
--- NOTE | 2017-03-02 16:10 | HHI.PR ---
Subjective Remarks alert appetite good no sob at rest obtunded this am much better after PAP therapy Objective Vital Signs Date Time Temp Pulse Resp B/P Pulse Ox O2 Delivery O2 Flow Rate FiO2 03/02/17 12:00 97.5 58 16 169/77 95 03/02/17 10:04 Nasal Cannula 4.00 50 03/02/17 08:27 97 Nasal Cannula 3.00 03/02/17 08:00 97.9 56 16 155/72 97 03/02/17 04:42 Nasal Cannula 5.00 03/02/17 04:08 97.4 60 18 185/94 100 182/96 03/02/17 04:04 98 50 03/01/17 23:45 97.4 60 18 159/76 98 03/01/17 23:25 98 50 03/01/17 20:30 97.4 56 18 151/72 97 03/01/17 20:00 98 Nasal Cannula 4.00 03/01/17 19:06 98 Nasal Cannula 5.00 03/01/17 16:17 98 Nasal Cannula 4.00 I/O 03/01/17 03/01/17 03/01/17 03/02/17 03/02/17 03/02/17 07:00 15:00 23:00 07:00 15:00 23:00 Intake Total 360 ml 360 ml 840 ml 0 ml Output Total 550 ml 800 ml 1 ml Balance -190 ml 360 ml 40 ml -1 ml Intake Oral 0 ml 360 ml 840 ml 0 ml IV Total 360 ml Output Urine Total 550 ml 800 ml 1 ml # Voids 0 2 # Bowel Movements 0 1 Result Diagram: 03/02/1762403/02/17624 Medications and IVs GENERAL: SKIN: Warm and dry. HEAD: Atraumatic. Normocephalic. EYES: Pupils equal and round. No scleral icterus. No injection or drainage. ENT: No nasal bleeding or discharge. Mucous membranes pink and moist. NECK: Trachea midline. No JVD. CARDIOVASCULAR: Regular rate and rhythm. RESPIRATORY: No accessory muscle use. Clear to auscultation. Breath sounds equal bilaterally. GASTROINTESTINAL: Abdomen soft, non-tender, nondistended. Hepatic and splenic margins not palpable. MUSCULOSKELETAL: Extremities without clubbing, cyanosis, or edema. No obvious deformities. NEUROLOGICAL: Awake and alert. No obvious cranial nerve deficits. Motor grossly within normal limits. Five out of 5 muscle strength in the arms and legs. Normal speech. PSYCHIATRIC: Appropriate mood and affect; insight and judgment normal. Assessment and Plan Assessment and Plan respiratory failre ?chelsy atelectatic change left base probable copd PLAN: O2 BRONCHODILATOR THERAPY TAPER STEROIDS CPAP while sleeping NPSG POST DC will sign off office 1 week Bill Khan MD Mar 02, 2017 16:10
[2017-03-02] MEDS ORDERED: CLON0.1T PO (16:41)
[2017-03-02] MEDS ORDERED: LISI-515 PO (16:41)
[2017-03-02] MEDS ORDERED: OXYGENTANK NAS.CANULA (16:43)
[2017-03-02] MEDS ORDERED: WALKER WHEELS/F1 MIS (16:44)
--- NOTE | 2017-03-02 16:45 | HHI.FF ---
Face to Face Verification Diagnosis: (1) Hypoxia (2) Dehydration (3) Syncope (4) Weakness Physical Therapy Order: Evaluate and Treat Home Health Nursing Order: Medical education CHF education Oxygen administration education Nursing assessment with vital signs I have seen patient Marcelo Muinz on 03/02/17. My clinical findings support the need for the requested home health care services because: Deconditioned w/ increased weakness Med compliance is questionable I certify that my clinical findings support that this patient is homebound because: Hx COPD- exertion dyspnea/weakness Fausto Schaffer MD Mar 02, 2017 16:45
[2017-03-02] MEDS ORDERED: LEVA750T PO (16:47)
[2017-03-02] MEDS ORDERED: PRED20 PO (16:48)
--- NOTE | 2017-03-02 16:57 | HHI.DS ---
Discharge Summary Admission Date Feb 26, 2017 at 12:37 Discharge Date: Mar 03, 2017 Admitting Diagnosis syncope. Hypotension. (1) Syncope ICD Code: R55 (2) Hypotension ICD Code: I95.9 (3) Dehydration ICD Code: E86.0 (4) Hyponatremia ICD Code: E87.1 (5) PNA (pneumonia) ICD Code: J18.9 Procedures none Brief History - From Admission This is a 76-year-old male with PMH of HTN, CAD and Anxiety who was brought to the ER by EMS after syncopal episode. Patient was seen by PCP at the [facility] earlier today and noted to have elevated BP of 180/88, started on Terazosin 2mg po qd and given Guaifenesin for c/o cough. States he took meds this afternoon and noted dizziness shortly afterwards. noted pt to be weak/pale and then had sudden syncopal event. No seizure activity noted, no head trauma. BP per EMS 80/60, s/p IVF w/ improvement. On arrival, BP 118/58, HR 59, O2 sat 98% on RA, Afebrile. CBC essentially unremarkable. Na 128. GFR 68, no previous labs for comparison. Lactic Acid 2.0. CXR w/ mild LLL infiltrates. CBC/BMP: 03/02/17 0625 03/02/17 0625 Significant Findings Laboratory Tests Test 02/28/17 03/02/17 07:50 06:25 White Blood Count 17.4 TH/MM3 14.6 TH/MM3 (4.0-11.0) (4.0-11.0) Red Blood Count 4.10 MIL/MM3 4.02 MIL/MM3 (4.50-5.90) (4.50-5.90) Hemoglobin 12.1 GM/DL 12.1 GM/DL (13.0-17.0) (13.0-17.0) Hematocrit 35.7 % 35.3 % (39.0-51.0) (39.0-51.0) Sodium Level 132 MEQ/L 134 MEQ/L (136-145) (136-145) Chloride Level 93 MEQ/L 95 MEQ/L (98-107) (98-107) Blood Urea Nitrogen 27 MG/DL (7-18) 31 MG/DL (7-18) Estimat Glomerular Filtration 82 ML/MIN (>89) Rate Random Glucose 136 MG/DL 114 MG/DL (74-106) (74-106) Calcium Level 8.2 MG/DL 8.3 MG/DL (8.5-10.1) (8.5-10.1) Neutrophils (%) (Auto) 91.9 % (16.0-70.0) Lymphocytes (%) (Auto) 3.6 % (9.0-44.0) Neutrophils # (Auto) 13.4 TH/MM3 (1.8-7.7) Lymphocytes # (Auto) 0.5 TH/MM3 (1.0-4.8) PE at Discharge GENERAL: This is a 76 years old male on 5 L oxygen SKIN: No rashes, warm and dry HEAD: Atraumatic. Normocephalic. EYES: Pupils equal round and reactive. Extraocular motions intact. No scleral icterus. ENT: Nose without bleeding, or drainage, Airway patent. NECK: Trachea midline. Supple CARDIOVASCULAR: Regular rate and rhythm without murmurs, gallops, or rubs. RESPIRATORY: Diminished breath sounds with lateral wheezing GASTROINTESTINAL: Abdomen soft, non-tender, nondistended. Positive bowel sounds MUSCULOSKELETAL: Extremities without clubbing, cyanosis, was 1 edema. Pedal pulses appreciated NEUROLOGICAL: Awake and alert. Moves all extremity. 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 pt cleared by pulmonology to be dc today and ff in a week as outpt. Patient still to need 3-4 L of oxygen, will do walk test and place home O2 She recommended wheeled walker and home health care PT. [id number] encounter performed with the patient on discharge day, as well as physical exam, summary of hospitalization course and postdischarge plan has been D/W the patient. D/W nurse D/W case maker. Discharge medications reviewed and printed and signed, post discharge follow up visit with PCP and other specialist as well as Brief hospital course and discharge summary has been placed. Pt Condition on Discharge: Fair Discharge Disposition: Disch w/ Home Health Serv Discharge Time: > 30 minutes Discharge Instructions DIET: Follow Instructions for: Heart Healthy Diet, Diabetic Diet Activities you can perform: See Additionl Instruction Other Activity Instructions: per pt recs Follow up Referrals: Pulmonology - 1 Week with Bill Khan MD New Medications: Clonidine (Clonidine) 0.1 Mg Tab 0.1 MG PO BID Blood Pressure Management #60 Ref 0 TAB Levofloxacin (Levaquin) 750 Mg Tab 750 MG PO DAILY Infection #4 Ref 0 TAB Oxygen tank (Oxygen tank) 1 Ea Tank 2 LITER ARLENE.CANULA CONTINUOUS Oxygen Concentrator Portable Gaseous 2 L/min via Nasal Cannula Continuous For 1 month pulmonary to extend prn HYPOXEMIA PREVENTION #1 CYLINDER Walker with Front Wheels (Walker with Front Wheels) 1 Mis Mis 1 EA .ROUTE DIRECTED weakness #1 Ref 0 EA Lisinopril (Lisinopril) 20 Mg Tab 20 MG PO Q12HR htn #60 TAB Prednisone (Prednisone) 20 Mg Tab 20 MG PO BID copd Days 10 TAB Continued Medications: Albuterol 6.7 GM Inh (Proventil Hfa 6.7 GM Inh) 90 Mcg/Act Aer 2 PUFF INH Q4HR PRN SHORTNESS OF BREATH #1 Ref 0 INHALER Diltiazem CD 24 HR (Diltiazem CD 24 HR) 240 Mg Caper 240 MG PO DAILY #30 Ref 0 CAP Guaifenesin ER 12 HR (Guaifenesin ER 12 HR) 600 Mg Tomás 400 MG PO BID Chest Congestion/Cough Ref 0 TAB Hydrochlorothiazide (Hydrochlorothiazide) 25 Mg Tab 25 MG PO DAILY #30 Ref 0 TAB Loratadine (Loratadine) 10 Mg Tab 10 MG PO DAILY Allergy Management Ref 0 TAB Pravastatin (Pravastatin) 40 Mg Tab 40 MG PO HS Cholesterol Management #30 Ref 0 TAB Ranitidine (Ranitidine) 150 Mg Cap 150 MG PO BID #60 Ref 0 CAP Fausto Schaffer MD Mar 02, 2017 16:57
[2017-03-02] MEDS: PRAVASTATIN SOD 40 MG TAB PO SCH (20:45)
[2017-03-02] MEDS: AZITHROMYCIN INJ 500 MG in SODIUM CHLOR 0.9% 250 ML INJ 250 ML IV SCH (23:19)
[2017-03-03] VITALS: BP 174/78; PULSE 50; RESP 22; TEMP 97.3; O2SAT 100
[2017-03-03] MEDS: cloNIDine HCL 0.1 MG TAB PO PRN (00:36)
[2017-03-03 01:01] VITALS: O2SAT 99
[2017-03-03 04:00] VITALS: BP 136/74; PULSE 53; RESP 18; TEMP 98; O2SAT 95
[2017-03-03] MEDS: AMPICILLIN-SULBACTAM INJ 3 GM in SODIUM CHLORIDE 0.9% INJ 100 ML IV SCH (05:23)
[2017-03-03 07:45] VITALS: PULSE 50
[2017-03-03 08:00] VITALS: BP 155/70; PULSE 54; RESP 18; TEMP 97.7; O2SAT 93
[2017-03-03 09:23] VITALS: O2SAT 93
[2017-03-03] MEDS: guaiFENesin E.R. 600 MG TAB PO SCH (09:58)
[2017-03-03] MEDS: FAMOTIDINE 20 MG TAB PO SCH (09:59)
[2017-03-03] MEDS: predniSONE 20 MG TAB PO SCH (09:59)
[2017-03-03] MEDS: LORATADINE 10 MG TAB PO SCH (09:59)
[2017-03-03] MEDS: SODIUM CHLORIDE 0.9% FLUSH 10 ML FLUSH IV FLUSH SCH (09:59)
[2017-03-03] MEDS: LISINOPRIL 20 MG TAB PO SCH (09:59)
[2017-03-03] MEDS: DILTIAZEM-CD 300 MG CAP ER PO SCH (09:59)
[2017-03-03] MEDS: HYDROCHLOROTHIAZIDE 25 MG TAB PO SCH (09:59)
[2017-03-03] MEDS: METOPROLOL TARTRATE 50 MG TAB PO SCH (09:59)
== END 2017-03-03 10:30 | disposition home health service (06) | DRG 312 ==
LOC: NEPC 20:22 → NEDA 22:35 → NEPGCP 02-25 00:17 → OBSVTOIN 02-26 12:37 → HCIS 02-26 16:21 → N04A 02-27 16:43
PROVIDERS: ADMIT Hospitalist; ATTEND Hospitalist
DX: I95.2 Hypotension due to drugs (principal); J81.0 Acute pulmonary edema; J18.9 Pneumonia, unspecified organism; J44.0 Chronic obstructive pulmonary disease with (acute) lower respiratory infection; E87.1 Hypo-osmolality and hyponatremia; J45.901 Unspecified asthma with (acute) exacerbation; J44.1 Chronic obstructive pulmonary disease with (acute) exacerbation; T44.6X5A Adverse effect of alpha-adrenoreceptor antagonists, initial encounter; E86.0 Dehydration; R55 Syncope and collapse; I25.10 Atherosclerotic heart disease of native coronary artery without angina pectoris; I10 Essential (primary) hypertension; F41.9 Anxiety disorder, unspecified; G47.33 Obstructive sleep apnea (adult) (pediatric); Z87.891 Personal history of nicotine dependence; Z72.0 Tobacco use; E66.9 Obesity, unspecified; E78.5 Hyperlipidemia, unspecified; Z85.46 Personal history of malignant neoplasm of prostate
CPT/HCPCS: 36600; 70450; 71010; 71020; 71275; 80048; 80053; 81001; 82550; 82805; 83605; 83735; 83880; 84100; 84443; 84484; 85025; 85027; 85379; 85610; 85730; 87040; 87070; 87205; 87449; 93005; 93306; 94002; 94003; 94150; 94620; 94640; 94664; 94667; 94668; 96361; 96374; G0378; J0295; J0456; J0696; J1940; J2060; J2920; J2930; J7030; J7050; J7512; Q9967